=== PATIENT | female | born 1980 | race Two or more races ===

== ENCOUNTER 2019-04-05 09:46 | Emergency (ER) | payer MEDICAID, OTHER ==
[~2019-04-05] VITALS: Ht 170.2 cm; Wt 99.8 kg
[2019-04-05 10:10] VITALS: BP 111/49
== END 2019-04-05 11:38 | disposition home or self-care (01) ==
LOC: ER 09:46
DX: J20.9 Acute bronchitis, unspecified (principal); J45.909 Unspecified asthma, uncomplicated; R19.7 Diarrhea, unspecified; Z90.49 Acquired absence of other specified parts of digestive tract
CPT/HCPCS: 71046

== ENCOUNTER 2020-03-21 15:53 | Emergency (ER) | payer MEDICAID ==
[~2020-03-21] VITALS: Ht 167.6 cm; Wt 106.6 kg
[2020-03-21 16:07] VITALS: BP 127/63
[2020-03-21] MEDS ORDERED: BENZOCAINE (DENTAL) 20 % SPRAY 60ML MT ONE (17:30)
== END 2020-03-21 17:57 | disposition home or self-care (01) ==
LOC: ER 15:53
DX: K04.7 Periapical abscess without sinus (principal)

== ENCOUNTER 2020-11-22 18:34 | Emergency (ER) | payer MEDICAID ==
[~2020-11-22] VITALS: Ht 170.2 cm; Wt 107.0 kg
[2020-11-22 20:14] VITALS: BP 122/50
[2020-11-22] MEDS ORDERED: PANTOPRAZOLE 40 MG TAB PO ONE (21:15)
== END 2020-11-22 21:56 | disposition home or self-care (01) ==
LOC: ER 18:34
DX: F45.8 Other somatoform disorders (principal); J45.909 Unspecified asthma, uncomplicated; Z86.2 Personal history of diseases of the blood and blood-forming organs and certain disorders involving the immune mechanism; Z90.49 Acquired absence of other specified parts of digestive tract; Z88.8 Allergy status to other drugs, medicaments and biological substances; Z20.822 Contact with and (suspected) exposure to COVID-19
CPT/HCPCS: 36415; 70360; 70490; 87426

== ENCOUNTER 2020-12-06 21:04 | Emergency (ER) | payer MEDICAID ==
[~2020-12-06] VITALS: Ht 170.2 cm; Wt 107.0 kg
[2020-12-07 00:55] LABS: Urine Bacteria NONE SEEN /hpf (None Seen); Urine Blood Negative /uL (Negative); Urine Mucus FEW (None Seen); Urine Specific Gravity 1.027 (1.001-1.035); Urine WBC 5 /hpf (0 - 5)
[2020-12-07 01:04] LABS: Basophils # (auto) 0.1 10 ^3/uL (0-0.2); Eosinophils # (auto) 0 10 ^3/uL (0-0.8); Eosinophils % (auto) 0.3 % (0.0-7.0); Hemoglobin 8.1 g/dL (12.2-16.2); Lymphocytes # (auto) 2.4 10 ^3/uL (0.4-5.4)
[2020-12-07 01:06] LABS: Basophils % (auto) 0.6 % (0.0-2.0); Hematocrit 27.3 % (36.0-46.0); Lymphocytes % (auto) 29.2 % (10.0-50.0); Mean Corpuscular Hemoglobin 18.5 pg (28.0-32.0); Mean Corpuscular Hgb Conc. 29.8 g/dL (32.0-36.0); Mean Corpuscular Volume 62.2 fL (80.0-100.0); Monocytes # (auto) 0.6 10 ^3/uL (0-1.3); Monocytes % (auto) 7.5 % (0.0-12.0); Neutrophils # (auto) 5.2 10 ^3/uL (1.6-8.6); Neutrophils % (auto) 62.4 % (37.0-80.0); Red Blood Cells 4.39 10^6/uL (4.0-5.20); Red Cell Distribution Width 18.2 % (11.8-14.3); White Blood Cell 8.4 10^3/uL (4.4-10.8)
[2020-12-07 01:22] LABS: Albumin 4.3 g/dL (3.4-5.0); BUN/Creatinine Ratio 20.8; Calcium 8.5 mg/dL (8.5-10.1); Potassium 3.5 mmol/L (3.5-5.1)
[2020-12-07 01:25] LABS: Bilirubin, Total 0.3 mg/dL (0.2-1.0); Total Protein 8.9 g/dL (6.4-8.2)
[2020-12-07 10:29] VITALS: BP 101/52
== END 2020-12-07 11:34 | disposition still patient (30) ==
LOC: ER 21:04
DX: O99.011 Anemia complicating pregnancy, first trimester (principal); O99.511 Diseases of the respiratory system complicating pregnancy, first trimester; J45.909 Unspecified asthma, uncomplicated; Z90.49 Acquired absence of other specified parts of digestive tract; Z88.8 Allergy status to other drugs, medicaments and biological substances; Z3A.00 Weeks of gestation of pregnancy not specified
CPT/HCPCS: 36415; 76801; 76817; 80053; 81001; 81025; 84702; 85025; 87086

== ENCOUNTER 2023-01-18 09:33 | Emergency (ER) | payer MEDICAID ==
[~2023-01-18] VITALS: Ht 167.6 cm; Wt 98.5 kg
[2023-01-18 10:00] VITALS: BP 127/74; PULSE 97; RESP 16; TEMP 98.4; O2SAT 100
[2023-01-18 10:50] LABS: Basophils # (auto) 0 10 ^3/uL (0-0.2); Basophils % (auto) 0.2 % (0.0-2.0); Eosinophils # (auto) 0 10 ^3/uL (0-0.8); Mean Corpuscular Hgb Conc. 29.9 g/dL (32.0-36.0); Monocytes # (auto) 1.1 10 ^3/uL (0-1.3)
[2023-01-18 10:52] LABS: Hematocrit 29.7 % (36.0-46.0); Hemoglobin 8.9 g/dL (12.2-16.2); Lymphocytes # (auto) 1.7 10 ^3/uL (0.4-5.4); Lymphocytes % (auto) 13.9 % (10.0-50.0); Mean Corpuscular Hemoglobin 20.9 pg (28.0-32.0); Mean Corpuscular Volume 69.8 fL (80.0-100.0); Monocytes % (auto) 8.8 % (0.0-12.0); Neutrophils # (auto) 9.2 10 ^3/uL (1.6-8.6); Neutrophils % (auto) 77.1 % (37.0-80.0); Red Blood Cells 4.26 10^6/uL (4.0-5.20); Red Cell Distribution Width 17.6 % (11.8-14.3)
[2023-01-18 11:23] LABS: Alanine Aminotransferase 16 U/L (7-40); Albumin 4.1 g/dL (3.2-4.8); Alkaline Phosphatase 100 U/L (46-116); Anion Gap 9.3 (5-15); Aspartate Aminotransferase 14 U/L (13-40); Calcium 8.3 mg/dL (8.5-10.1); Carbon Dioxide 22.7 mmol/L (20-30); Chloride 108 mmol/L (98-107); Glucose 102 mg/dL (74-106); Potassium 3.2 mmol/L (3.5-5.1); Sodium 140 mmol/L (136-145)
[2023-01-18 11:24] LABS: Bilirubin, Total 0.4 mg/dL (0.2-1.0)
[2023-01-18 11:39] LABS: BUN/Creatinine Ratio 8.8 (10.0-20.0); Blood Urea Nitrogen < 5 mg/dL (9-23)
[2023-01-18] MEDS ORDERED: SODIUM CHLORIDE 0.9% 1,000 ML IV ONE (12:00)
[2023-01-18] MEDS ORDERED: HYDROcodone-ACET 5/325MG TAB PO ONE (12:00)
[2023-01-18] MEDS ORDERED: VANCOMYCIN 1GM/250ML 250 ML IV ONE (12:00)
[2023-01-18] MEDS ORDERED: HYDR-4902 PO (12:04)
[2023-01-18] MEDS ORDERED: BACDST PO (12:04)
[2023-01-18] MEDS ORDERED: CLIN300C70 PO (12:04)
[2023-01-18] MEDS ORDERED: diphenhdrAMINE HCL 50 MG/1 ML VL IV ONE (14:00)
[2023-01-18] MEDS ORDERED: FAMOTIDINE (10MG/ML) 2ML VL IV ONE (14:00)
[2023-01-18] MEDS ORDERED: DexAMETHasone SOD PHOS 10MG/1ML VIAL INJ IV ONE (14:00)
[2023-01-18] MEDS ORDERED: AUG875T PO (14:46)
== END 2023-01-18 11:58 | disposition home or self-care (01) ==
LOC: ER 09:33
DX: K04.7 Periapical abscess without sinus (principal); K02.9 Dental caries, unspecified; L03.211 Cellulitis of face; J45.909 Unspecified asthma, uncomplicated; R51.9 Headache, unspecified; Z86.2 Personal history of diseases of the blood and blood-forming organs and certain disorders involving the immune mechanism; Z90.49 Acquired absence of other specified parts of digestive tract; Z88.8 Allergy status to other drugs, medicaments and biological substances; Z79.1 Long term (current) use of non-steroidal anti-inflammatories (NSAID); Z79.899 Other long term (current) drug therapy
CPT/HCPCS: 36415; 70487; 80053; 85025; 96365; 96375; 99285; J1100; J1200; J3370; J3490; J7030; Q9967

== ENCOUNTER 2023-01-19 11:07 | Emergency (ER) | payer MEDICAID ==
[~2023-01-19] VITALS: Ht 167.6 cm; Wt 99.3 kg
[~2023-01-19 11:07] MED LIST: AUG875T PO; BACDST PO; HYDR-4902 PO
[2023-01-19] MEDS ORDERED: CLINDAMYCIN 600MG IV 50 ML IV ONE (11:45)
[2023-01-19] MEDS ORDERED: SODIUM CHLORIDE 0.9% 1,000 ML IV ONE (11:45)
[2023-01-19] MEDS ORDERED: IOHEXOL 350 MG/ML 100ML IJ ONE (11:56)
[2023-01-19] MEDS ORDERED: ONDANSETRON HCL 4 MG/2 ML VIAL IV ONE (12:00)
[2023-01-19] MEDS ORDERED: MORPHINE SULFATE 4 MG/ML SYR/VIAL IV ONE (12:00)
[2023-01-19 12:02] LABS: Basophils # (auto) 0 10 ^3/uL (0-0.2); Eosinophils # (auto) 0 10 ^3/uL (0-0.8); Eosinophils % (auto) 0.1 % (0.0-7.0); Neutrophils # (auto) 9.1 10 ^3/uL (1.6-8.6)
[2023-01-19 12:03] LABS: Alanine Aminotransferase 14 U/L (7-40); Albumin 4.2 g/dL (3.2-4.8); Alkaline Phosphatase 104 U/L (46-116); Anion Gap 9.6 (5-15); Aspartate Aminotransferase 9 U/L (13-40); BUN/Creatinine Ratio 8.8 (10.0-20.0); Blood Urea Nitrogen 5 mg/dL (9-23); Calcium 8.6 mg/dL (8.5-10.1); Carbon Dioxide 23.4 mmol/L (20-30); Chloride 108 mmol/L (98-107); Glucose 98 mg/dL (74-106); Sodium 141 mmol/L (136-145)
[2023-01-19 12:04] LABS: Bilirubin, Total 0.4 mg/dL (0.2-1.0); Total Protein 7.3 g/dL (5.7-8.2)
[2023-01-19 12:06] LABS: Basophils % (auto) 0.1 % (0.0-2.0); Hematocrit 29.7 % (36.0-46.0); Hemoglobin 9.2 g/dL (12.2-16.2); Lymphocytes % (auto) 16.3 % (10.0-50.0); Mean Corpuscular Hemoglobin 21.4 pg (28.0-32.0); Mean Corpuscular Hgb Conc. 30.8 g/dL (32.0-36.0); Mean Corpuscular Volume 69.5 fL (80.0-100.0); Monocytes # (auto) 0.9 10 ^3/uL (0-1.3); Monocytes % (auto) 7.7 % (0.0-12.0); Neutrophils % (auto) 75.8 % (37.0-80.0); Red Blood Cells 4.28 10^6/uL (4.0-5.20); Red Cell Distribution Width 17.6 % (11.8-14.3)
[2023-01-19 12:29] LABS: INR 0.98 (0.9-1.15); Partial Thromboplastin Time 26.8 SEC (24.5-34.5); Prothrombin Time 10.3 sec (9.3-11.8)
[2023-01-19 14:00] VITALS: PULSE 66; RESP 14; O2SAT 97
[2023-01-19] MEDS ORDERED: KETOROLAC TROMETH 30 MG/ML 1ML VIAL IV ONE (14:00)
[2023-01-19] MEDS ORDERED: POTASSIUM CHL 20MEQ/100ML 100 ML IV ONE (14:15)
[2023-01-19 14:32] LABS: Anisocytosis Slight; Hypochromia Slight
[2023-01-19 14:55] LABS: Urine Bacteria NONE SEEN /hpf (None Seen); Urine Blood Negative /uL (Negative); Urine Clarity Clear (Clear); Urine Color Colorless (Yellow); Urine Protein, UAD Negative (Negative); Urine Specific Gravity 1.047 (1.001-1.035); Urine Urobilinogen Normal (Negative); Urine WBC <1 /hpf (0 - 5)
[2023-01-19 15:03] LABS: Platelet Estimate Adequate
[2023-01-19 17:40] VITALS: BP 115/59; PULSE 67; RESP 15; TEMP 97.6; O2SAT 100
== END 2023-01-19 18:15 | disposition short-term general hospital (02) ==
LOC: ER 11:07
DX: D64.9 Anemia, unspecified (principal); L03.211 Cellulitis of face; K04.7 Periapical abscess without sinus
CPT/HCPCS: 36415; 70460; 70487; 70491; 80053; 81001; 83605; 85025; 85610; 85730; 87040; 96361; 96365; 96375; 99285; J1885; J2270; J2405; J3480; J3490; Q9967

== ENCOUNTER 2023-08-17 17:49 | Emergency (ER) | payer MEDICAID ==
[~2023-08-17] VITALS: Ht 167.6 cm; Wt 88.4 kg
[2023-08-17 18:49] LABS: Basophils % (auto) 0.5 % (0.0-2.0); Eosinophils % (auto) 0.6 % (0.0-7.0); Lymphocytes % (auto) 27.5 % (10.0-50.0); Monocytes % (auto) 7.2 % (0.0-12.0); Neutrophils % (auto) 64.2 % (37.0-80.0); White Blood Cell 6.9 10^3/uL (4.4-10.8)
[2023-08-17 18:50] LABS: Basophils # (auto) 0 10 ^3/uL (0-0.2); Eosinophils # (auto) 0 10 ^3/uL (0-0.8); Hematocrit 31.1 % (36.0-46.0); Hemoglobin 9.2 g/dL (12.2-16.2); Lymphocytes # (auto) 1.9 10 ^3/uL (0.4-5.4); Mean Corpuscular Hemoglobin 20.7 pg (28.0-32.0); Mean Corpuscular Hgb Conc. 29.5 g/dL (32.0-36.0); Mean Corpuscular Volume 70.1 fL (80.0-100.0); Monocytes # (auto) 0.5 10 ^3/uL (0-1.3); Neutrophils # (auto) 4.4 10 ^3/uL (1.6-8.6); Red Blood Cells 4.43 10^6/uL (4.0-5.20); Red Cell Distribution Width 17.4 % (11.8-14.3)
[2023-08-17 19:10] LABS: Alanine Aminotransferase 16 U/L (7-40); Albumin 4.2 g/dL (3.2-4.8); Alkaline Phosphatase 131 U/L (46-116); Anion Gap 4 (5-15); Aspartate Aminotransferase 18 U/L (13-40); BUN/Creatinine Ratio 15.9 (10.0-20.0); Bilirubin, Total 0.2 mg/dL (0.2-1.0); Blood Urea Nitrogen 10 mg/dL (9-23); Calcium 8.5 mg/dL (8.5-10.1); Carbon Dioxide 27 mmol/L (20-30); Chloride 108 mmol/L (98-107); Glucose 97 mg/dL (74-106); Sodium 139 mmol/L (136-145); Total Protein 6.6 g/dL (5.7-8.2)
[2023-08-17] MEDS ORDERED: IBUP-1455 PO (21:55)
[2023-08-17] MEDS ORDERED: CYCL-837 PO (21:55)
[2023-08-17 22:14] VITALS: BP 109/62; PULSE 71; RESP 16; O2SAT 100
[2023-08-17] MEDS: KETOROLAC TROMETH 30 MG/ML 1ML VIAL IM ONE (22:15)
== END 2023-08-17 22:15 | disposition home or self-care (01) ==
LOC: ER 17:49
DX: M54.12 Radiculopathy, cervical region (principal); M79.601 Pain in right arm; J45.909 Unspecified asthma, uncomplicated; D64.9 Anemia, unspecified; E07.9 Disorder of thyroid, unspecified; Z90.49 Acquired absence of other specified parts of digestive tract; Z88.8 Allergy status to other drugs, medicaments and biological substances; Z88.1 Allergy status to other antibiotic agents
CPT/HCPCS: 36415; 71045; 80053; 84484; 85025; 93005; 93971; 96372; 99285; J1885

== ENCOUNTER 2025-05-02 07:08 | Inpatient (IN) | payer MEDICAID ==
[2025-05-02] VITALS (9 sets, daily range): BP systolic 110–115; BP diastolic 65–69; PULSE 57–68; RESP 14–18; TEMP 97.8–98.1; O2SAT 96–100
[~2025-05-02] VITALS: Ht 165.1 cm; Wt 92.8 kg
[~2025-05-02 07:08] MED LIST changes: +CYCL-837 PO; +IBUP-1455 PO
--- NOTE | 2025-05-02 07:44 | ED.PDOC ---
History of Present Illness HPI Comments 45 year old female with PMHx thyroid disease, anemia, asthma, presents to the ED with a chief complaint of LT sided facial pain onset last night around 22:30. Patient states she began experiencing LT sided facial pain last night around 22:30, she is also experiencing LT sided facial numbness, described as a "tightness" sensation, pain radiates to neck. Denies facial drooping, weakness, fever, chills, head injury, LOC, chest pain, shortness of breath, changes in vision, nausea, vomiting. No other symptoms or modifying factors present at this time. Chief Complaint: Face pain Time Seen by MD: 07:40 Primary Care Provider: SENAIT Espinal Notes: Medications, Allergies Allergies: Coded Allergies: Theophyllines (Verified Allergy, Severe, 04/05/19) Vancomycin (Verified Allergy, Unknown, 08/17/23) Home Meds Active Scripts Cyclobenzaprine Hcl (Cyclobenzaprine Hcl) 5 Mg Tab, 1 TAB PO TID, #30 TAB Prov:JAZMYN [employer] 08/17/23 Ibuprofen Micronized (Ibuprofen) 800 Mg Tab, 800 MG PO TID PRN, #60 TAB Prov:JAZMYN [employer]IP [employer] 08/17/23 Amoxicillin & Pot Clavulanate (AUGMENTIN TABLET) 875 Mg Tb, 1 TAB PO BID for 10 Days, #20 TAB Prov:NINO HOYOS Q SET UP [employer]CH[employer] 01/18/23 Hydrocodone-Acetaminophen (Hydrocodone Bitartrate/AC 5-325 mg) 1 Tab Tab, 1 TAB PO Q6HR, #10 TAB as needed for pain Prov:NINO HOYOS Q SET UP MECHANIC AUTOM[employer]IC LINE 01/18/23 Sulfamethoxazole W/Trimethopri (Bactrim Ds Tablet) 1 Tab Tb, 1 TAB PO BID for 10 Days, #20 TAB Prov:NINO HOYOS Q SET UP MECHANIC AUTOMATIC LINE 01/18/23 Information Source: Patient Mode of Arrival: Ambulatory Severity: Moderate Timing: Hours Duration: Since onset Prehospital treatment: None Past Medical History PAST MEDICAL HISTORY: Anemia, Asthma, Thyroid Surgical History: Cholecystectomy, CHILD GUIDANCE COUNSELOR History: No Pertinent CHILD GUIDANCE COUNSELOR History Family History Family History: Family hx of DM, Family hx of heart rimma, Family hx of HTN, Family hx of Kidney rimma Social History Smoker: Non-Smoker Alcohol: Occasionally Drugs: Denies Drug Use Lives In: Home Constitutional: denies: chills, diaphoresis, fatigue, fever, malaise, sweats, weakness, others EENTM: reports: others (LT facial pain); denies: blurred vision, double vision, ear bleeding, ear discharge, ear drainage, ear pain, ear ringing, eye pain, eye redness, hearing loss, mouth pain, mouth swelling, nasal discharge, nose bleeding, nose congestion, nose pain, photophobia, tearing, throat pain, throat swelling, voice changes Respiratory: denies: cough, hemoptysis, orthopnea, SOB at rest, shortness of breath, SOB with excertion, stridor, wheezing, others Cardiovascular: denies: chest pain, dizzy spells, diaphoresis, Dyspnea on exertion, edema, irregular heart beat, left arm pain, lightheadedness, palpitations, PND, syncope, others Gastrointestinal: denies: abdomen distended, abdominal pain, blood streaked bowels, constipated, diarrhea, dysphagia, difficulty swallowing, hematemesis, melena, nausea, poor appetite, poor fluid intake, rectal bleeding, rectal pain, vomiting, others Genitourinary: denies: abnormal vagina bleeding, burning, dyspareunia, dysuria, flank pain, frequency, hematuria, incontinence, pain, , vagina discharge, urgency, others Neurological: reports: numbness (LT facial); denies: dizziness, fainting, headache, left sided numbness, left sided weakness, paresthesia, pre-existing deficit, right sided numbness, right sided weakness, seizure, speech problems, tingling, tremors, weakness, others Musculoskeletal: reports: neck pain (LT sided); denies: back pain, gout, joint pain, joint swelling, muscle pain, muscle stiffness, others Integumetry: denies: bruises, change in color, change in hair/nails, dryness, laceration, lesions, lumps, rash, wounds, others Allergic/Immunocompromised: denies: Difficulty Healing, Frequent Infections, Hives, Itching, others Hematologic/Lymphatic: denies: anemia, blood clots, easy bleeding, easy bruising, swollen glands, others Endocrine: denies: excessive hunger, excessive sweating, excessive thirst, excessive urination, flushing, intolerance to cold, intolerance to heat, unexplained weight gain, unexplained weight loss, others Psychiatric: denies: anxiety, bipolar disorder, depression, hopeless, panic disorder, schizophrenia, sleepless, suicidal, others All Other Systems: Reviewed and Negative Physical Exam General Appearance: No Apparent Distress, Normal HEENT: Normal ENT Inspection, Pharynx Normal, TMs Normal Neck: Full Range of Motion, Non-Tender, Normal, Normal Inspection Respiratory: Chest Non-Tender, Lungs Clear, No Accessory Muscle Use, No Respiratory Distress, Normal Breath Sounds Cardiovascular: No Edema, No JVD, No Murmur, No Gallop, Normal Peripheral Pulses, Regular Rate/Rhythm Breast Exam: Deferred Gastrointestinal: No Organomegaly, Non Tender, No Pulsatile Mass, Normal Bowel Sounds, Soft Genitalia: Deferred Pelvic: Deferred Rectal: Deferred Extremities: No calf tenderness, Normal capillary refill, Normal inspection, Normal range of motion, Non-tender, No pedal edema Musculoskeletal : Apperance: Normal Neurologic: Alert, medical laboratory technologist II-XII nml as Tested, No Motor Deficits, Normal Affect, Normal Mood, No Sensory Deficits Cerebellar Function: Normal Reflexes: Normal Skin: Dry, Normal Color, Warm Lymphatic: No Adenopathy Was a procedure done? Was a procedure done?: No Differential Dx Considerations may include: ACS, CVA, TIA, viral syndrome, electrolyte abnormality X-Ray, Labs, Meds, VS Vital Signs Date Time Temp Pulse Resp B/P (MAP) Pulse Ox O2 Delivery O2 Flow Rate FiO2 05/02/25 11:39 63 14 99 Room Air* 0 21 05/02/25 11:39 98.0 63 14 110/65 (80) 99 98.0 05/02/25 08:10 98.2 68 16 137/100 (112) 99 98.2 05/02/25 08:08 68 16 99 Room Air* 0 21 05/02/25 08:03 97.9 05/02/25 07:16 98.1 69 16 133/61 99 98.1 Lab Test 05/02/25 11:10 05/02/25 10:46 05/02/25 08:24 05/02/25 07:33 Range/Units Urine Color Light-yellow Yellow Urine Clarity Turbid H Clear Urine pH 5.5 5.0-9.0 Urine Specific [place] 1.009 1.001-1.035 Urine Protein Negative Negative Urine Ketones Negative Negative Urine Blood Negative Negative /uL Urine Nitrite Negative Negative Urine Bilirubin Negative Negative Urine Urobilinogen Normal Negative mg/dL Urine Leukocyte Esterase 1+ Negative /uL Urine RBC 2 0 - 4 /hpf Urine Microscopic WBC 4 0-5 /HPF Urine Squamous Epithelial Cells Few <5 /hpf Urine Bacteria None seen None Seen /hpf Urine Glucose Normal Normal mg/dL Urine Test Negative Negative Troponin I High Sensitivity 10 9 9 </=34 ng/L White Blood Count 4.6 4.4-10.8 10^3/uL Red Blood Count 3.52 L 4.0-5.20 10^6/uL Hemoglobin 13.2 12.2-16.2 g/dL Hematocrit 38.8 36.0-46.0 % Mean Corpuscular Volume 110.2 H 80.0-100.0 fL Mean Corpuscular Hemoglobin 37.6 H 28.0-32.0 pg Mean Corpuscular Hemoglobin Concent 34.1 32.0-36.0 g/dL Red Cell Distribution Width 13.6 11.8-14.3 % Platelet Count 210 140-450 10^3/uL Mean Platelet Volume 8.6 6.9-10.8 fL Neutrophils (%) (Auto) 58.5 37.0-80.0 % Lymphocytes (%) (Auto) 31.8 10.0-50.0 % Monocytes (%) (Auto) 7.5 0.0-12.0 % Eosinophils (%) (Auto) 1.7 0.0-7.0 % Basophils (%) (Auto) 0.5 0.0-2.0 % Neutrophils # (Auto) 2.7 1.6-8.6 10 ^3/uL Lymphocytes # (Auto) 1.5 0.4-5.4 10 ^3/uL Monocytes # (Auto) 0.3 0-1.3 10 ^3/uL Eosinophils # (Auto) 0.1 0-0.8 10 ^3/uL Basophils # (Auto) 0 0-0.2 10 ^3/uL Nucleated Red Blood Cells 0.1 % Sodium Level 140 136-145 mmol/L Potassium Level 3.8 3.5-5.1 mmol/L Chloride Level 105 98-107 mmol/L Carbon Dioxide Level 27 20-31 mmol/L Anion Gap 8 5-15 Blood Urea Nitrogen 9 9-23 mg/dL Creatinine 0.62 0.550-1.02 mg/dL Glomerular Filtration Rate Calc 113 >90 mL/min BUN/Creatinine Ratio 14.5 10.0-20.0 Serum Glucose 79 74-106 mg/dL Calcium Level 8.6 L 8.7-10.4 mg/dL B-Type Natriuretic Peptide 81.80 0-100 pg/mL Current Medications Medications (Trade) Dose Ordered Sig/Dominik Route Start Time Stop Time Status Last Admin Amoxicillin/ Clavulanate Potassium (Augmentin Tablet) 875 mg ONCE ONCE PO 05/02/25 07:45 05/02/25 07:46 DC 05/02/25 08:03 Acetaminophen (Tylenol Tablet) 650 mg ONCE ONCE PO 05/02/25 07:45 05/02/25 07:46 DC 05/02/25 08:03 Time of 1ST Reevaluation: 08:10 Reevaluation 1ST: Unchanged Patient Education/Counseling: Diagnosis, Treatment, Prognosis Family Education/Counseling: No Family Present SEPSIS Sepsis Screen Date sepsis recognized/suspect: May 02, 2025 Time Sepsis recognized/suspect: 718 Recent Procedure: No On Antibiotic Therapy: No Respiratory Rate >20: No Heart Rate >90: No Temp<36 C (96.8 F) or >38.3 C: No SBP <90 or MAP <65 mmHG: No New Acute Mental Status Change: No Is the patient on CPAP, BIPAP,: No Physician Orders Chest Portable (05/02/25 07:23) Electrocardigram (05/02/25 07:23) Head Without Contrast (05/02/25 07:23) Electrocardigram (05/02/25 08:23) Electrocardigram (05/02/25 10:23) Vital Signs Date Time Temp Pulse Resp B/P (MAP) Pulse Ox O2 Delivery O2 Flow Rate FiO2 05/02/25 11:39 63 14 99 Room Air* 0 21 05/02/25 11:39 98.0 63 14 110/65 (80) 99 98.0 05/02/25 08:10 98.2 68 16 137/100 (112) 99 98.2 05/02/25 08:08 68 16 99 Room Air* 0 21 05/02/25 08:03 97.9 05/02/25 07:16 98.1 69 16 133/61 99 98.1 Laboratory Tests Test 05/02/25 07:33 White Blood Count 4.6 10^3/uL (4.4-10.8) Medications Medications Dose Ordered Sig/Dominik Route Start Time Stop Time Status Last Admin Dose Admin Acetaminophen 650 mg ONCE ONCE PO 05/02/25 07:45 05/02/25 07:46 DC 05/02/25 08:03 Amoxicillin/ Clavulanate Potassium 875 mg ONCE ONCE PO 05/02/25 07:45 05/02/25 07:46 DC 05/02/25 08:03 Departure 1 Departure Time of Disposition: 13:06 (Patient with left-sided facial numbness and tingling concerning for possible TIA or CVA. We will admit patient for further workup and expert consultation) Impression: Primary Impression: Suspected cerebrovascular accident (CVA) Additional Impression: Numbness and tingling of left side of face Disposition: ADMITTED INPATIENT Admit to: Tele Condition: Guarded Critical Care Note Critical Care Time?: No Stability Stability form required: No Heart Score Heart Score: Heart Score Response (Comments) Value History N/A 0 EKG N/A 0 Age N/A 0 Risk Factors N/A 0 Troponin N/A 0 Total 0 I personally scribed for KAMRYN DAVIS MD ([email or web address]) on 05/02/25 at 07:44. Electronically submitted by Jo Ann Nicholson ([email or web address]). KAMRYN DAVIS MD May 02, 2025 07:44
[2025-05-02] MEDS: ACETAMINOPHEN 325 MG TAB PO ONE (08:03)
[2025-05-02 08:10] LABS: Chloride 105 mmol/L (98-107); Potassium 3.8 mmol/L (3.5-5.1); Sodium 140 mmol/L (136-145)
[2025-05-02 08:11] LABS: Anion Gap 8 (5-15); Carbon Dioxide 27 mmol/L (20-31)
[2025-05-02 08:14] LABS: Calcium 8.6 mg/dL (8.7-10.4)
[2025-05-02 08:16] LABS: Glucose 79 mg/dL (74-106)
[2025-05-02 08:17] LABS: BUN/Creatinine Ratio 14.5 (10.0-20.0)
[2025-05-02 08:18] LABS: Blood Urea Nitrogen 9 mg/dL (9-23)
[2025-05-02 08:29] LABS: Hematocrit 38.8 % (36.0-46.0); Hemoglobin 13.2 g/dL (12.2-16.2); Mean Corpuscular Hemoglobin 37.6 pg (28.0-32.0); Mean Corpuscular Volume 110.2 fL (80.0-100.0); Nucleated Red Blood Cells % 0.1 %
[2025-05-02 11:44] LABS: Urine Protein, UAD Negative (Negative)
--- NOTE | 2025-05-02 12:22 | DVH ---
CLINICAL HISTORY: dizziness TECHNIQUE: Helical scanning was performed of the head from the skull base to the vertex. Multiplanar reconstructions were performed. This exam was performed according to our departmental dose optimization program. Up-to-date CT equipment and radiation dose reduction techniques are utilized as appropriate. CTDI 50 DLP 800 COMPARISON: None FINDINGS: There is no evidence for acute intracranial hemorrhage, acute ischemic changes, mass, mass effect, or extra-axial fluid collection. There is no hydrocephalus or midline shift. There is no effacement of the cerebral sulci and basal subarachnoid cisterns. The ignacio-white matter differentiation is well maintained. The imaged paranasal sinuses are clear. IMPRESSION: NO ACUTE INTRACRANIAL ABNORMALITY SEEN.
--- NOTE | 2025-05-02 12:22 | DVH ---
INDICATION: dizziness TECHNIQUE: Frontal view of the chest. COMPARISON: XY CHEST PORTABLE on DOS: 08/17/23, XR CHEST 1 VIEW on DOS: 05/20/23 FINDINGS/IMPRESSION: The lungs are clear. The cardiomediastinal silhouette is unchanged. No pleural effusion or pneumothorax. No acute osseous abnormality.
[2025-05-02] MEDS ORDERED: NITROGLYCERIN 0.4 MG SL TAB SL PRN (14:00)
[2025-05-02] MEDS ORDERED: DOCUSATE SOD 100 MG CAP PO PRN (14:00)
--- NOTE | 2025-05-02 14:02 | DVHHPRES ---
History of Present Illness Resident Creating Document: BRADY NEWMAN RESIDENT History of Present Illness Mahogany Dos Santos, a 45-year-old female with a history of obesity, hypothyroidism, iron-deficiency anemia, hypovitaminosis D, asthma, Cholecystectomy, and presents with sudden onset left-sided facial pain, tingling and numbness described as tightness radiating to the neck since last night at 22:30, without associated weakness, facial droop, fever, vision changes, chest pain, or other systemic symptoms. Denies any injury or any similar previous episodes. PMHx: obesity, hypothyroidism, iron-deficiency anemia, hypovitaminosis D and asthma PSHx: Cholecystectomy, Family history: DM, heart rimma, HTN, Kidney rimma Social history: Patient is a non-smoker, drinks alcohol occasionally, denies drug use, and lives at home. OBGYN: active menstruation, sexually active Review of Systems Constitutional: Yes: Weakness, Malaise; No: Fever, Chills, Sweats, Other Eyes: No: Pain, Vision change, Conjunctivae inflammation, Eyelid inflammation, Other, Redness ENT: No: Ear pain, Ear discharge, Nose pain, Nose discharge, Nose congestion, Mouth pain, Mouth swelling, Throat pain, Throat swelling, Other Respiratory: No: Cough, Dry, Shortness of breath, SOB with excertion, Wheezing, Hemoptysis, Pleuritic Pain, Sputum, Wheezing, Other Cardiovascular: No: Chest Pain, Palpitations, Orthopnea, Paroxysmal Noc. Dyspnea, Edema, Lt Headedness, Other Gastrointestinal: No: Nausea, Vomiting, Abdominal Pain, Diarrhea, Constipation, Melena, Hematochezia, Other Genitourinary: No Dysuria; Frequency; No Incontinence, No Hematuria, No Retention, No Other Musculoskeletal: neck pain; No: other, shoulder pain, arm pain, back pain, hand pain, leg pain, foot pain Skin: No: Rash, Lesions, Jaundice, Bruising, Other Neurological: Weakness, Numbness, Other (unilateral face left); No: Incoordination, Change in speech, Confusion, Seizures Allergies: Coded Allergies: Theophyllines (Verified Allergy, Severe, 04/05/19) Vancomycin (Verified Allergy, Unknown, 08/17/23) Medications Current Medications Medications Dose Ordered Sig/Dominik Route Start Time Stop Time Status Last Admin Dose Admin Sodium Chloride 1,000 ml @ 120 mls/hr Q8H20M IV 05/02/25 14:00 UNV Acetaminophen/ Hydrocodone Bitart 1 tab Q4HP PRN PO 05/02/25 14:00 UNV Nitroglycerin 0.4 mg Q5MINP PRN SL 05/02/25 14:00 UNV Morphine Sulfate 2 mg Q30M PRN IV 05/02/25 14:00 UNV Exam Vital Signs Vital Signs Date Time Temp Pulse Resp B/P (MAP) Pulse Ox O2 Delivery O2 Flow Rate FiO2 05/02/25 13:26 57 13 101/65 (77) 100 05/02/25 11:39 Room Air* 0 21 05/02/25 11:39 98.0 98.0 General Appearance: Alert, Oriented X3, Cooperative, mild distress HEENT: Atraumatic, PERRLA, EOMI, Other (tenderness, to left baptism, sternocleidomastoid and around ear) Respiratory: Clear to auscultation, Normal air movement Cardiovascular: Regular rate, Normal S1, Normal S2, No murmurs, Gallops Abdominal: Normal bowel sounds, Soft, No tenderness, No hepatospenomegaly, No masses Extremities: No clubbing, No cyanosis, No edema, Normal pulses, No tenderness/swelling Skin: No rashes, No breakdown, No significant lesion Neuro: Normal gait, Normal speech, Strength at 5/5 X4 ext, Normal tone, Sensation intact, Reflexes 2+, Other (local tenderness +ve but no limitating movement or neck stiffness. ) Psych/Mental Status: Mental status NL, Mood NL Labs/Xrays Labs Test 05/02/25 11:10 05/02/25 10:46 05/02/25 07:33 Range/Units Urine Color Light-yellow Yellow Urine Clarity Turbid H Clear Urine pH 5.5 5.0-9.0 Urine Specific [place] 1.009 1.001-1.035 Urine Protein Negative Negative Urine Ketones Negative Negative Urine Blood Negative Negative /uL Urine Nitrite Negative Negative Urine Bilirubin Negative Negative Urine Urobilinogen Normal Negative mg/dL Urine Leukocyte Esterase 1+ Negative /uL Urine RBC 2 0 - 4 /hpf Urine Microscopic WBC 4 0-5 /HPF Urine Squamous Epithelial Cells Few <5 /hpf Urine Bacteria None seen None Seen /hpf Urine Glucose Normal Normal mg/dL Urine Test Negative Negative Troponin I High Sensitivity 10 </=34 ng/L White Blood Count 4.6 4.4-10.8 10^3/uL Red Blood Count 3.52 L 4.0-5.20 10^6/uL Hemoglobin 13.2 12.2-16.2 g/dL Hematocrit 38.8 36.0-46.0 % Mean Corpuscular Volume 110.2 H 80.0-100.0 fL Mean Corpuscular Hemoglobin 37.6 H 28.0-32.0 pg Mean Corpuscular Hemoglobin Concent 34.1 32.0-36.0 g/dL Red Cell Distribution Width 13.6 11.8-14.3 % Platelet Count 210 140-450 10^3/uL Mean Platelet Volume 8.6 6.9-10.8 fL Neutrophils (%) (Auto) 58.5 37.0-80.0 % Lymphocytes (%) (Auto) 31.8 10.0-50.0 % Monocytes (%) (Auto) 7.5 0.0-12.0 % Eosinophils (%) (Auto) 1.7 0.0-7.0 % Basophils (%) (Auto) 0.5 0.0-2.0 % Neutrophils # (Auto) 2.7 1.6-8.6 10 ^3/uL Lymphocytes # (Auto) 1.5 0.4-5.4 10 ^3/uL Monocytes # (Auto) 0.3 0-1.3 10 ^3/uL Eosinophils # (Auto) 0.1 0-0.8 10 ^3/uL Basophils # (Auto) 0 0-0.2 10 ^3/uL Nucleated Red Blood Cells 0.1 % Sodium Level 140 136-145 mmol/L Potassium Level 3.8 3.5-5.1 mmol/L Chloride Level 105 98-107 mmol/L Carbon Dioxide Level 27 20-31 mmol/L Anion Gap 8 5-15 Blood Urea Nitrogen 9 9-23 mg/dL Creatinine 0.62 0.550-1.02 mg/dL Glomerular Filtration Rate Calc 113 >90 mL/min BUN/Creatinine Ratio 14.5 10.0-20.0 Serum Glucose 79 74-106 mg/dL Calcium Level 8.6 L 8.7-10.4 mg/dL B-Type Natriuretic Peptide 81.80 0-100 pg/mL SEPSIS Sepsis Screen Date sepsis recognized/suspect: May 02, 2025 Time Sepsis recognized/suspect: 1143 Recent Procedure: No On Antibiotic Therapy: No Respiratory Rate >20: No Heart Rate >90: No Temp<36 C (96.8 F) or >38.3 C: No SBP <90 or MAP <65 mmHG: No New Acute Mental Status Change: No Is the patient on CPAP, BIPAP,: No Physician Orders Chest Portable (05/02/25 07:23) Electrocardigram (05/02/25 07:23) Head Without Contrast (05/02/25 07:23) Electrocardigram (05/02/25 08:23) Electrocardigram (05/02/25 10:23) Admit (05/02/25 13:57) Allergies (05/02/25 13:57) Code Status (05/02/25 13:57) Sodium Chloride 0.9% (05/02/25 14:00) Hydrocodone-Acet 5/325mg Tab (Conger 5/32 (05/02/25 14:00) Ondansetron Hcl (Zofran) (05/02/25 14:00) Docusate Sodium Capsule (Colace Capsule) (05/02/25 14:00) Complete Blood Count (05/03/25 04:00) Comprehensive Metabolic Panel (05/03/25 04:00) Npo (Nothing By Mouth) Diet (05/02/25 Dinner) Pt Request For Service (05/02/25 13:57) Echo 2d Mode Cardiac Dop (05/02/25 13:57) Carotid Duplx W Color Dop (05/02/25 13:57) Condition: Serious (05/02/25 13:57) Acetaminophen Tablet (Tylenol Tablet) (05/02/25 14:00) Bedrest With Bathroom Privileg (05/02/25 13:57) Morphine Sulfate Injection (05/02/25 14:00) Sequential Compression Device (05/02/25 ) Nitroglycerin Sublingual (Ntrostat Subli (05/02/25 14:00) Morphine Sulfate Injection (05/02/25 14:00) Oxygen By Nasal Cannula (05/02/25 13:57) Stat Ekg For Chest Pain (05/02/25 13:57) Notify Md Of Changes From Base (05/02/25 13:57) Cosmetics And Toiletries Salesperson For 24 Hours (05/02/25 13:57) Emergency Dysrhythmia Protocol (05/02/25 13:57) Rhythm Strips Once Every Shift (05/02/25 13:57) Vital Signs Date Time Temp Pulse Resp B/P (MAP) Pulse Ox O2 Delivery O2 Flow Rate FiO2 05/02/25 13:26 57 13 101/65 (77) 100 05/02/25 12:01 55 10 107/71 (83) 100 05/02/25 11:39 63 14 99 Room Air* 0 21 05/02/25 11:39 98.0 63 14 110/65 (80) 99 98.0 05/02/25 08:10 98.2 68 16 137/100 (112) 99 98.2 05/02/25 08:08 68 16 99 Room Air* 0 21 05/02/25 08:03 97.9 05/02/25 07:16 98.1 69 16 133/61 99 98.1 Laboratory Tests Test 05/02/25 07:33 White Blood Count 4.6 10^3/uL (4.4-10.8) Medications Medications Dose Ordered Sig/Dominik Route Start Time Stop Time Status Last Admin Dose Admin Acetaminophen 650 mg ONCE ONCE PO 05/02/25 07:45 05/02/25 07:46 DC 05/02/25 08:03 650 MG Amoxicillin/ Clavulanate Potassium 875 mg ONCE ONCE PO 05/02/25 07:45 05/02/25 07:46 DC 05/02/25 08:03 875 MG Assessment/Plan Assessment/Plan #Likely TIA and/or stroke: Focal facial neurological deficits: NC CT negative for intracranial hemorrhage, interval follow up, trace rhythm, echo rule out PFO, aspirin, atorvastatin, Neurology consult and physical therapy. check for HbA1c, UDS, lipid panel. Possiblity of GCA high, ESR , CRP and presumptive steroids started. needs close follow up, otitis externa. #Acute Left facial pain: Differential include Houston's palsy, facial cellulitis, facial nerve compression, trigeminal neuralgia and shingles, close monitoring needed in-hospital. #Acute complicated UTI: nonspecific urinary symptoms, frequency chcf, Urinalysis suggestive, urine culture, IV ceftriaxone to continue. Prior cultures negative for drug resistant organisms. rule out #Obesity grade 1: 34.3 BMI, weight loss counseling and healthy lifestyle modification to continue, patient is on Wegovy. #Hypothyroidism: Levothyroxine 175 mcg, check for free T4 and TSH we will hold the high dose until appropriate need is evaluated. #Asthma: Lifetime nonsmoker, albuterol as needed, previous exacerbation was on December 2024, breathing comfortably in the room air as needed albuterol. #Hypovitaminosis D: Daily 2000 units to continue #known iron-deficiency anemia, on ferrosol: previously patient had microcytosis, Continue iron supplements. #macrocytic anemia/ macrocytosis: presented with MCV of 110 , ruled out B12 folate deficiency and hypothyroidism PUD prophylaxis: Protonix IV to continue DVT prophylaxis: SCD/brisk movement. Barriers to discharge: Medical diagnosis and management in progress. Patient lives with family. Independent for ADL. PT consulted. PCP: Dr. Blair Specialist Relevant To Admission: Neurology, consulted for possible stroke /TIA. Case discussed with Dr. Mccurdy. Code Status: Full Code. Discussion for goals of care and care plan needed total 29 minutes bedside. Plan discussed with: Patient My Orders Orders - BRADY NEWMAN RESIDENT Procedure Category Date Status Time Admit ADMIT 05/02/25 Transmitted 13:57 Allergies JACOB 05/02/25 In Process 13:57 Code Status CODE 05/02/25 Transmitted 13:57 Sodium Chloride 0.9% PHA 05/02/25 Logged 14:00 Hydrocodone-Acet PHA 05/02/25 Logged 5/325mg Tab (Conger 14:00 Ondansetron Hcl PHA 05/02/25 Transmitted (Zofran) 14:00 Docusate Sodium PHA 05/02/25 Transmitted Capsule (Colace 14:00 Complete Blood Count LAB 05/03/25 Verified 04:00 Comprehensive LAB 05/03/25 Verified Metabolic Panel 04:00 Npo (Nothing By DIET 05/02/25 Transmitted Mouth) Diet Dinner Pt Request For Service PT 05/02/25 Logged 13:57 Echo 2d Mode Cardiac US 05/02/25 Logged DOP 13:57 Carotid Duplx W Color US 05/02/25 Logged DOP 13:57 Condition: Serious JACOB 05/02/25 In Process 13:57 Acetaminophen Tablet PHA 05/02/25 Transmitted (Tylenol Tablet) 14:00 Bedrest With Bathroom JACOB 05/02/25 In Process Privileg 13:57 Morphine Sulfate [facility] 05/02/25 Transmitted Injection 14:00 Sequential [facility] 05/02/25 In Process Compression Device Nitroglycerin [facility] 05/02/25 Logged Sublingual (Ntrostat 14:00 Morphine Sulfate [facility] 05/02/25 Logged Injection 14:00 Oxygen By Nasal RT 05/02/25 Transmitted Cannula 13:57 Stat Ekg For Chest [facility] 05/02/25 In Process Pain 13:57 Notify Md Of Changes [facility] 05/02/25 In Process From Base 13:57 Cosmetics And Toiletries Salesperson For [facility] 05/02/25 In Process 24 Hours 13:57 Emergency Dysrhythmia [facility] 05/02/25 In Process Protocol 13:57 Rhythm Strips Once [facility] 05/02/25 In Process Every Shift 13:57 Date of Service: May 02, 2025 Billing Provider: TWAN MCCURDY MD Common Visit Codes: 84219-GCMDBLM INP/OBS CARE (HIGH) Secondary Visit Codes: [id number] CARE PLAN 30 MINUTES BRADY NEWMAN RESIDENT May 02, 2025 14:02
[2025-05-02] MEDS ORDERED: MORPHINE SULFATE 4 MG/ML SYR/VIAL IV PRN (14:15)
[2025-05-02] MEDS: MORPHINE SULFATE 4 MG/ML SYR/VIAL IV ONE (14:32)
[2025-05-02] MEDS: ONDANSETRON HCL 4 MG/2 ML VIAL IV ONE (14:32)
--- NOTE | 2025-05-02 14:45 | DVH ---
Carotid Duplex CLINICAL HISTORY: rule out carotid stenosis COMPARISON: None TECHNIQUE: Duplex Doppler evaluation of the extracranial carotid and vertebral arteries including color Doppler and spectral/pulsed waveform analysis was performed. FINDINGS: RIGHT SIDE: The peak systolic velocities are 90 cm/s in the CCA, 81 cm/s in the ICA. The ICA/CCA ratio is 0.9. The external carotid artery is patent with peak systolic velocity of 91 cm/s proximally. The subclavian artery is patent with peak systolic velocity of na cm/s. There is appropriate antegrade flow in the right vertebral artery. LEFT SIDE: The peak systolic velocities are 104 cm/s in the CCA, 118 cm/s in the ICA. The ICA/CCA ratio is 1.1. The external carotid artery is patent with peak systolic velocity of 106 cm/s proximally. The subclavian artery is patent with peak systolic velocity of na cm/s. There is appropriate antegrade flow in the left vertebral artery. IMPRESSION: No hemodynamically significant stenosis noted in the right carotid system. No hemodynamically significant stenosis noted in the left carotid system. Reference: Radiology 2003; 229:340-346 Normal ICA PSV is <125 cm/sec and no plaque or intimal thickening is visible sonographically additional criteria include ICA/CCA PSV ratio <2.0 and ICA EDV <40 cm/sec <50% ICA stenosis ICA PSV is <125 cm/sec and plaque or intimal thickening is visible sonographically additional criteria include ICA/CCA PSV ratio <2.0 and ICA EDV <40 cm/sec 50-69% ICA stenosis ICA PSV is 125-230 cm/sec and plaque is visible sonographically additional criteria include ICA/CCA PSV ratio of 2.0-4.0 and ICA EDV of 40-100 cm/sec 70% ICA stenosis but less than near occlusion ICA PSV is >230 cm/sec and visible plaque and luminal narrowing are seen at ignacio-scale and color Doppler ultrasound (the higher the Doppler parameters lie above the threshold of 230 cm/sec, the greater the likelihood of severe disease) additional criteria include ICA/CCA PSV ratio >4 and ICA EDV >100 cm/sec
[2025-05-02] MEDS: SODIUM CHLORIDE 0.9% 1,000 ML IV SCH (15:06)
[2025-05-02 15:09] LABS: Triglycerides 136 mg/dL (< 150)
[2025-05-02 15:11] LABS: Cholesterol 165 mg/dL (< 200)
[2025-05-02 15:12] LABS: HDL Cholesterol 70 mg/dL (40-59)
[2025-05-02 15:15] LABS: Free T4 (Free Thyroxine) 1.03 ng/dL (0.89-1.76)
[2025-05-02] MEDS: ATORVASTATIN 20 MG TAB PO SCH (15:29)
[2025-05-02] MEDS: PANTOPRAZOLE 40 MG/10 ML VIAL INJ IV SCH (15:42)
[2025-05-02 15:53] LABS: Thyroid Stimulating Hormone 4.06 uIU/mL (0.55-4.78)
[2025-05-02 15:55] LABS: Beta HCG, Quantitative 0.8 mIU/mL (1.5-4.2)
[2025-05-02 16:12] LABS: Alanine Aminotransferase 29.0 U/L (7-40); Albumin 4.1 g/dL (3.2-4.8); Alkaline Phosphatase 86.0 U/L (46-116); Bilirubin, Direct 0.1 mg/dL (<0.3); Bilirubin, Total 0.4 mg/dL (0.2-1.0); Total Protein 6.9 g/dL (5.7-8.2)
[2025-05-02] MEDS: CYANOCOBALAMIN (B-12) 1000 MCG/1 ML VIAL IM ONE (17:31)
[2025-05-02] MEDS: predniSONE 20 MG TAB PO ONE (20:22)
[2025-05-02] MEDS: MORPHINE SULFATE 4 MG/ML SYR/VIAL IV PRN (20:23)
--- NOTE | 2025-05-02 22:00 | DVHINCON2 ---
Date of service: May 02, [address] Parikh Reason for Consultation Stroke versus TIA in young patient History of Present Illness Ms. Dos Santos is a 45 years old right-handed female with a history of hypothyroidism, anemia, asthma, obesity, she came to the [facility] [place] on 05/02/2025 with a chief complaint of left facial pain, at this time, he is alert and fully oriented, he provided the following history She developed intense intermittent throbbing pain, 10/10 in the left frontal head region, face and chin, the pain lasts for 20 minutes. This no associated facial weakness, hearing change, taste change, skin rash She did not recent acute illness, suddenly flu, chills, fever In the hospital, she was found to have microcytic anemia, vitamin B12 deficiency WBC/HB/PLT/MCV, 05/02/2025: 4.6/30.2/210/110.2 ESR, 05/02/2025: 8 BMP, 05/02/2025: Unremarkable Liver function tests, 05/02/2025: Normal HGB A1c, 04/22/2025: 4.7 TG/HDL/LDL/HDL, 05/02/2025: 136/165/87/70 Vitamin B12, 05/02/25: 169 Folic acid, 05/02/2025: 9.11 TSH, 05/02/2025: 4.06 FT4, 04/22/2025: 1.03 Carotid Doppler, 05/02/2025:No hemodynamically significant stenosis noted in the right carotid system. No hemodynamically significant stenosis noted in the left carotid system CT head, 05/02/2025: NO ACUTE INTRACRANIAL ABNORMALITY SEEN Past Medical History Hypothyroidism, anemia, asthma Past Surgical History Cholecystectomy, Family History: Patient reports no known family medical history. Family History Hypertension, diabetes, heart disease, kidney failure Social History She denies a history of tobacco smoking, drug or alcohol abuse Allergies: Coded Allergies: Theophyllines (Verified Allergy, Severe, 04/05/19) Vancomycin (Verified Allergy, Unknown, 08/17/23) Home Meds Active Scripts Cyclobenzaprine Hcl (Cyclobenzaprine Hcl) 5 Mg Tab, 1 TAB PO TID, #30 TAB Prov:PAULINA*JAZMYNP 08/17/23 Ibuprofen Micronized (Ibuprofen) 800 Mg Tab, 800 MG PO TID PRN, #60 TAB Prov:JAZMYN PHILIP RESIDENT CARE AIDE 08/17/23 Amoxicillin & Pot Clavulanate (AUGMENTIN TABLET) 875 Mg Tb, 1 TAB PO BID for 10 Days, #20 TAB Prov:NINO HOYOS Q HIGH PRESSURE CLEANER 01/18/23 Hydrocodone-Acetaminophen (Hydrocodone Bitartrate/AC 5-325 mg) 1 Tab Tab, 1 TAB PO Q6HR, #10 TAB as needed for pain Prov:LILLIANA HOYOSA Q HIGH PRESSURE CLEANER 01/18/23 Sulfamethoxazole W/Trimethopri (Bactrim Ds Tablet) 1 Tab Tb, 1 TAB PO BID for 10 Days, #20 TAB Prov:LILLIANA HOYOSA Q HIGH PRESSURE CLEANER 01/18/23 Current Medications Current Medications Medications (Trade) Dose Ordered Sig/Dominik Route PRN Reason Start Time Stop Time Status Last Admin Sodium Chloride 1,000 ml @ 120 mls/hr Q8H20M IV 05/02/25 14:00 05/02/25 15:29 Acetaminophen/ Hydrocodone Bitart (Prim 5/325MG Tab) 1 tab Q4HP PRN PO MODERATE PAIN (4-6 PAIN SCALE) 05/02/25 14:00 Ondansetron HCl (Zofran) 4 mg Q4HP PRN IV NAUSEA / VOMITING 05/02/25 14:00 Docusate Sodium (Colace Capsule) 100 mg BIDPRN PRN PO FOR CONSTIPATION 05/02/25 14:00 Acetaminophen (Tylenol Tablet) 650 mg Q6HP PRN PO PAIN SCALE 1-3 OR TEMP>100.4 05/02/25 14:00 Morphine Sulfate 2 mg Q4HPRN PRN IV SEVERE PAIN (7-10 PAIN SCALE) 05/02/25 14:15 05/02/25 20:23 Nitroglycerin (Ntrostat Sublingual) 0.4 mg Q5MINP PRN SL FOR CHEST PAIN 05/02/25 14:00 Morphine Sulfate 2 mg Q30M PRN IV FOR CHEST PAIN 05/02/25 14:15 Aspirin 81 mg DAILY PO 05/02/25 14:30 05/02/25 15:29 Atorvastatin Calcium (Lipitor) 40 mg DAILY PO 05/02/25 14:30 05/02/25 15:29 Ceftriaxone Sodium 50 ml @ 100 mls/hr DAILY IV 05/02/25 14:30 05/02/25 15:30 Cholecalciferol (Vitamin D3 Tablet) 2,000 unit DAILY PO 05/03/25 10:00 Ferrous Sulfate 325 mg DAILY PO 05/03/25 10:00 Albuterol (Ventolin Medneb) 1.25 mg Q6HPRN PRN NEB SHORTNESS OF BREATH 05/02/25 14:30 Pantoprazole Sodium (Protonix) 40 mg DAILY IV 05/02/25 14:30 05/02/25 15:42 Prednisone 60 mg DAILY PO 05/03/25 10:00 Review of Systems As above, the other systems are negative Vital Signs Vital Signs Date Time Temp Pulse Resp B/P (MAP) Pulse Ox O2 Delivery O2 Flow Rate FiO2 05/02/25 21:00 97.8 57 18 110/69 (83) 96 97.8 05/02/25 20:00 Room Air* 0 21 Physical Exam GENERAL EXAM: General: the patient is well developed and nourished. No acute distress. HEENT: Normocephalic, neck is supple, no carotid bruits. No mass. No erythema/swelling/rashes in the face and scalp RESPIRATORY: Normal respiratory effort with symmetrical lung expansion. Lungs clear to auscultation. CARDIOVASCULAR: Regular rate and rhythm with no murmurs. S1, S2. ABDOMEN: Soft, nontender, normal bowel sound NEUROLOGICAL: MENTAL STATUS: Awake and alert. Oriented to person, place, time and general circumstances. Able to give personal history. SPEECH, LANGUAGE, HIGHER CORTICAL FUNCTION: no aphasia or dysathria. CRANIAL NERVES: #2: Intact visual myers to confrontation. The optic discs were sharp. #3,4,6: Pupils are equal, round and reactive. EOMs full and conjugate. No nystagmus. #5: Diminished pinprick and light touch only in the left face. Mandibular strength intact. #7: Facial muscles symmetrical and strength intact. #8: Hearing grossly normal to voice. #9,10: Uvula and soft palate rise in the midline. Swallow and voice are normal. #11: Trapezius and sternomastoid strength intact bilaterally. #12: Tongue midline. No fasciculations or atrophy. SENSATION: Light touch perceived the painful stimuli in the left neck Sensation to touch and pinprick is normal in the extremities. MOTOR: Normal tone in the upper and lower extremity. Normal muscle bulk. No fasciculations. No abnormal movements or posturing. Muscle strength of the major groups in the extremities is 4/5, slightly weaker in the left arm than leg, but without drift. REFLEXES: Deep tendon reflexes are symmetrical. No pathological reflexes. CEREBELLAR/COORDINATION: Finger to nose is normal bilaterally. GAIT/STATION: deferred. Labs/Diagnostic Data Labs Test 05/02/25 11:10 05/02/25 10:46 05/02/25 08:24 05/02/25 07:33 Range/Units Urine Color Light-yellow Yellow Urine Clarity Turbid H Clear Urine pH 5.5 5.0-9.0 Urine Specific [place] 1.009 1.001-1.035 Urine Protein Negative Negative Urine Ketones Negative Negative Urine Blood Negative Negative /uL Urine Nitrite Negative Negative Urine Bilirubin Negative Negative Urine Urobilinogen Normal Negative mg/dL Urine Leukocyte Esterase 1+ Negative /uL Urine RBC 2 0 - 4 /hpf Urine Microscopic WBC 4 0-5 /HPF Urine Squamous Epithelial Cells Few <5 /hpf Urine Bacteria None seen None Seen /hpf Urine Glucose Normal Normal mg/dL Urine Test Negative Negative Troponin I High Sensitivity 10 </=34 ng/L Vitamin B12 Level 169 L 211-911 pg/mL Folic Acid 9.11 >5.38 ng/mL Free Thyroxine (T4) Calculated 1.03 0.89-1.76 ng/dL Total Bilirubin 0.4 0.2-1.0 mg/dL Direct Bilirubin 0.1 <0.3 mg/dL Aspartate Amino Transferase (AST) 29 13-40 U/L Alanine Aminotransferase (ALT) 29 7-40 U/L Alkaline Phosphatase 86 46-116 U/L C-Reactive Protein High Sensitivity 0.03 <1.0 mg/dL Total Protein 6.9 5.7-8.2 g/dL Albumin 4.1 3.2-4.8 g/dL Triglycerides Level 136 < 150 mg/dL Cholesterol Level 165 < 200 mg/dL LDL Cholesterol 87 < 100 mg/dL HDL Cholesterol 70 H 40-59 mg/dL Thyroid Stimulating Hormone (TSH) 4.06 0.55-4.78 uIU/mL Beta HCG, Quantitative 0.8 L 1.5-4.2 mIU/mL Plasma/Serum Blood Alcohol < 3.0 <10 mg/dL White Blood Count 4.6 4.4-10.8 10^3/uL Red Blood Count 3.52 L 4.0-5.20 10^6/uL Hemoglobin 13.2 12.2-16.2 g/dL Hematocrit 38.8 36.0-46.0 % Mean Corpuscular Volume 110.2 H 80.0-100.0 fL Mean Corpuscular Hemoglobin 37.6 H 28.0-32.0 pg Mean Corpuscular Hemoglobin Concent 34.1 32.0-36.0 g/dL Red Cell Distribution Width 13.6 11.8-14.3 % Platelet Count 210 140-450 10^3/uL Mean Platelet Volume 8.6 6.9-10.8 fL Neutrophils (%) (Auto) 58.5 37.0-80.0 % Lymphocytes (%) (Auto) 31.8 10.0-50.0 % Monocytes (%) (Auto) 7.5 0.0-12.0 % Eosinophils (%) (Auto) 1.7 0.0-7.0 % Basophils (%) (Auto) 0.5 0.0-2.0 % Neutrophils # (Auto) 2.7 1.6-8.6 10 ^3/uL Lymphocytes # (Auto) 1.5 0.4-5.4 10 ^3/uL Monocytes # (Auto) 0.3 0-1.3 10 ^3/uL Eosinophils # (Auto) 0.1 0-0.8 10 ^3/uL Basophils # (Auto) 0 0-0.2 10 ^3/uL Nucleated Red Blood Cells 0.1 % Erythrocyte Sedimentation Rate 8 0-20 mm/hr Sodium Level 140 136-145 mmol/L Potassium Level 3.8 3.5-5.1 mmol/L Chloride Level 105 98-107 mmol/L Carbon Dioxide Level 27 20-31 mmol/L Anion Gap 8 5-15 Blood Urea Nitrogen 9 9-23 mg/dL Creatinine 0.62 0.550-1.02 mg/dL Glomerular Filtration Rate Calc 113 >90 mL/min BUN/Creatinine Ratio 14.5 10.0-20.0 Serum Glucose 79 74-106 mg/dL Hemoglobin A1c 4.7 <5.7 % A1C Calcium Level 8.6 L 8.7-10.4 mg/dL B-Type Natriuretic Peptide 81.80 0-100 pg/mL Assessment Acute left facial pain, etiology unclear ? Neuralgia ? Shingles ? 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 Although this document has been carefully reviewed, there may still be some phonetic and typographical errors. These areas are purely typographical due to imperfections of the software programs, and do not reflect any compromise in the patient's medical care. Plan discussed with: Patient, Other CODEY RAMOS MD May 02, 2025 22:00
[2025-05-03] VITALS (11 sets, daily range): BP systolic 98–136; BP diastolic 62–77; PULSE 57–89; RESP 17–20; TEMP 97.8–98.7; O2SAT 95–100
[2025-05-03] MEDS: HYDROcodone-ACET 5/325MG TAB PO PRN (03:29)
[2025-05-03 06:56] LABS: Hematocrit 37.1 % (36.0-46.0); Hemoglobin 12.6 g/dL (12.2-16.2); Mean Corpuscular Hemoglobin 37.7 pg (28.0-32.0); Mean Corpuscular Volume 110.5 fL (80.0-100.0); Nucleated Red Blood Cells % 0.1 %
[2025-05-03 07:10] LABS: Alanine Aminotransferase 35 U/L (7-40); Albumin 3.6 g/dL (3.2-4.8); Alkaline Phosphatase 79 U/L (46-116); Anion Gap 10 (5-15); BUN/Creatinine Ratio 12.7 (10.0-20.0); Carbon Dioxide 22 mmol/L (20-31); Potassium 4.2 mmol/L (3.5-5.1); Sodium 140 mmol/L (136-145); Total Protein 6.3 g/dL (5.7-8.2)
[2025-05-03 07:11] LABS: Bilirubin, Total 0.4 mg/dL (0.2-1.0)
[2025-05-03 07:16] LABS: Blood Urea Nitrogen 7 mg/dL (9-23); Calcium 8.3 mg/dL (8.7-10.4); Chloride 108 mmol/L (98-107); Glucose 117 mg/dL (74-106)
[2025-05-03] MEDS ORDERED: IOHEXOL 350 MG/ML 100ML IJ ONE (09:10)
[2025-05-03] MEDS: ACETAMINOPHEN 325 MG TAB PO PRN (09:24)
--- NOTE | 2025-05-03 09:28 | DVHPN2 ---
Progress Note - Dictate Date Seen: May 03, 2025 Medical Necessity Reason Pt with a Central, PICC or Fol: No Subjective MsTahmina Dos Santos is a 45 years old right-handed female with a history of hypothyroidism, anemia, asthma, obesity, she came to the [facility] on 05/02/2025 with a chief complaint of left facial pain I have seen and examined the patient, discussed with her nurse and primary care team, at this time, she is doing fine, alert and fully oriented Earlier this morning, the patient has had left facial numbness, left eye pain, worsened left monocular blurry vision, followed by weakness numbness in the left arm than leg, the left-hand clawed up and the right 3rd 4th finger were penitentiary flexed. [place] neurology saw her WBC/HB/PLT/MCV, 05/02/2025: 4.6/30.2/210/110.2 ESR, 05/02/2025: 8 BMP, 05/02/2025: Unremarkable Liver function tests, 05/02/2025: Normal HGB A1c, 04/22/2025: 4.7 TG/HDL/LDL/HDL, 05/02/2025: 136/165/87/70 Vitamin B12, 05/02/25: 169 Folic acid, 05/02/2025: 9.11 TSH, 05/02/2025: 4.06 FT4, 04/22/2025: 1.03 Carotid Doppler, 05/02/2025:No hemodynamically significant stenosis noted in the right carotid system. No hemodynamically significant stenosis noted in the left carotid system CT head, 05/02/2025 1120: NO ACUTE INTRACRANIAL ABNORMALITY SEEN MR head, 04/03/25: No acute intracranial abnormality seen. No evidence for acute infarct. No significant white matter disease. vital signs Vital Sign Date Time Temp Pulse Resp B/P (MAP) Pulse Ox O2 Delivery O2 Flow Rate FiO2 05/03/25 09:24 97.8 05/03/25 05:00 57 18 100/62 (75) 97 05/02/25 20:00 Room Air* 0 21 Total Intake and Output 05/02/25 05/02/25 05/03/25 15:00 23:00 07:00 Intake Total 50 ml 600 ml Balance 50 ml 600 ml medications Current Medications Medications Dose Ordered Sig/Dominik Route Start Time Stop Time Status Last Admin Dose Admin Sodium Chloride 1,000 ml @ 120 mls/hr Q8H20M IV 05/02/25 14:00 05/03/25 06:33 120 MLS/HR Acetaminophen/ Hydrocodone Bitart 1 tab Q4HP PRN PO 05/02/25 14:00 05/03/25 03:29 1 TAB Ondansetron HCl 4 mg Q4HP PRN IV 05/02/25 14:00 Docusate Sodium 100 mg BIDPRN PRN PO 05/02/25 14:00 Acetaminophen 650 mg Q6HP PRN PO 05/02/25 14:00 05/03/25 09:24 650 MG Morphine Sulfate 2 mg Q4HPRN PRN IV 05/02/25 14:15 05/02/25 20:23 2 MG Nitroglycerin 0.4 mg Q5MINP PRN SL 05/02/25 14:00 Morphine Sulfate 2 mg Q30M PRN IV 05/02/25 14:15 Aspirin 81 mg DAILY PO 05/02/25 14:30 05/02/25 15:29 81 MG Atorvastatin Calcium 40 mg DAILY PO 05/02/25 14:30 05/02/25 15:29 40 MG Ceftriaxone Sodium 50 ml @ 100 mls/hr DAILY IV 05/02/25 14:30 05/02/25 15:30 100 MLS/HR Cholecalciferol 2,000 unit DAILY PO 05/03/25 10:00 Ferrous Sulfate 325 mg DAILY PO 05/03/25 10:00 Albuterol 1.25 mg Q6HPRN PRN NEB 05/02/25 14:30 Pantoprazole Sodium 40 mg DAILY IV 05/02/25 14:30 05/02/25 15:42 40 MG Lorazepam 1 mg ONCE PRN IV 05/02/25 22:45 objective General: the patient is well developed and nourished. No acute distress. HEENT: Normocephalic, neck is supple, no carotid bruits. No mass. No erythema/swelling/rashes in the face and scalp MENTAL STATUS: Subjective SPEECH, LANGUAGE, HIGHER CORTICAL FUNCTION: no aphasia or dysathria. CRANIAL NERVES: Left monocular blurry vision, pupils are equal, round and reactive. EOMs full and conjugate. No nystagmus. Diminished pinprick and light touch only in the left face. Mandibular strength intact. Facial muscles symmetrical and strength intact. SENSATION: Light touch perceived the painful stimuli in the left neck Sensation to touch and pinprick is normal in the extremities. MOTOR: Normal tone in the upper and lower extremity. Normal muscle bulk. No fasciculations. No abnormal movements or posturing. Muscle strength of the major groups in the extremities is 5/5, left extremities: 4/5 REFLEXES: Deep tendon reflexes are symmetrical. No pathological reflexes. CEREBELLAR/COORDINATION: Finger to nose is normal bilaterally. GAIT/STATION: deferred laboratory and microbiology Laboratory Tests 05/03/25 05:50 Test 05/03/25 05:50 Range/Units Serum Glucose 117 H 74-106 mg/dL Problem List Acute stroke syndrome in the morning on 05/03/25 with unremarkable MRI Acute left facial pain, etiology unclear ? Neuralgia ? Shingles Macrocytic anemia Vitamin B12 deficiency Assessment/Plan Monitoring Supportive treatment Telemetry Intrinsic factor antibody Vitamin B12 supplementation Hold off prednisone GI prophylaxis/Protonix More recommendation per clinical course This medical document was created using an electronic medical record system with [employer] dictation system. Although this document has been carefully reviewed, there may still be some phonetic and typographical errors. These areas are purely typographical due to imperfections of the software programs, and do not reflect any compromise in the patient's medical care. Prognosis poor Plan discussed with: Patient, Other Total Time (mins): 50 CODEY RAMOS MD May 03, 2025 09:27
[2025-05-03] MEDS: LORazepam 2MG/ML-1ML VIAL IV PRN (09:32)
--- NOTE | 2025-05-03 09:48 | DVH ---
PROCEDURE: CTA HEAD AND NECK WITH AND WITHOUT CONTRAST COMPARISON: None INDICATION: stroke TECHNIQUE:: On the multirow-detector CT scanner, a volumetric scan is performed of head and neck after the administration of intravenous contrast. Multiplanar, MIP and 3D reconstructions were performed. CTDIvol measures 23 mGy. DLP measures 836 mGy*cm FINDINGS: CTA BRAIN: Cavernous ICAs: No significant atherosclerosis. A1 segments, anterior communicating artery, and A2 segments: No proximal occlusion. M1 segments and major MCA branches: No proximal occlusion. P1, P2 and proximal P3 segments of the double backer: No proximal occlusion. Intracranial vertebral arteries, cerebellar arteries and basilar artery: No proximal occlusion. CTA NECK: The common carotid arteries and ICAs are normal in course and caliber without hemodynamically significant stenosis or occlusion. The vertebral arteries are normal in course, caliber and contour, without evidence of dissection or occlusion. The lung apices are unremarkable in appearance. Hypoplastic/surgically absent thyroid gland. IMPRESSION: Motion degraded study, significantly limiting evaluation for proximal cervical ICA and carotid bulbs. No evidence of large vessel occlusion in the head and neck. If there is persistent clinical concern for acute infarct, recommend MRI for further evaluation.
[2025-05-03 09:59] LABS: INR 0.93 (0.9-1.15); Partial Thromboplastin Time 26.8 SEC (24.5-34.5); Prothrombin Time 9.9 sec (9.3-11.8)
[2025-05-03] MEDS: CHOLECALCIFEROL (VITD3) 1,000UNIT=25mCg TAB PO SCH (10:00)
[2025-05-03] MEDS: FERROUS SULFATE 325mg EC TAB PO SCH (10:00)
[2025-05-03] MEDS ORDERED: predniSONE 20 MG TAB PO SCH (10:00)
--- NOTE | 2025-05-03 10:03 | BSKYNEURO ---
[place] [facility] Note # Demographics Consult Type: Acute Stroke Level 1 (0-4.5 hrs) Patient Location: Inpatient First Name: GRICELDA Last Name: GRZEGORZ Date of : 1980 Age: 45 Gender: Female Facility: [facility] Time of Initial Page (): 05/03/2025 08:47 First Contact with Site (): 05/03/2025 08:47 # HPI History: 45 yo F obese hypothyroism asthma, anemia admitted yesterday L face numbness and tingling LKN yesterday 10 am, today 740 am L face numbness, then 830 am pain L mastoid, nurse pressed, pain to L eye, blurred, weakness LUE, LLE/ Per team asked to get on camera No blood thinners No HTN, DM, stroke Yesterday LKN 10 pm gluc 188 Now on ASA only # Scores Time of exam and NIHSS (): 05/03/2025 08:51 Level of Consciousness 1a: [0] = Alert; keenly responsive LOC Questions 1b: [0] = Answers both questions correctly LOC Commands 1c: [0] = Performs both tasks correctly Best Gaze 2: [0] = Normal Visual 3: [2] = Complete hemianopia Facial Palsy 4: [1] = Minor paralysis Motor Arm Left 5a: [3] = No effort against gravity Motor Arm Right 5b: [1] = Drift Motor Leg Left 6a: [2] = Some effort against gravity Motor Leg Right 6b: [1] = Drift Limb Ataxia 7: [0] = Absent Sensory 8: [1] = [id number]-bv-[id number] sensory loss Best Language 9: [0] = No aphasia Dysarthria 10: [0] = Normal Extinction and Inattention 11: [0] = No abnormality NIHSS Total: 11 # Exam Additional Neurologic Exam: L face, UE, LLE numbness, can't hardly feel # Data Time Head CT personally read by me (): 05/03/2025 09:[address]: - no bleed - per radiologist read Time CTA personally reviewed by me ( Time): 05/03/2025 09:59 CTA Head: - no large vessel occlusion - preliminarily reviewed by me, please refer to radiology read for official reading and per CTA Neck: - patent vessels - preliminarily reviewed by me, please refer to radiology read for official reading # Assessment Impression: - Ischemic Stroke (Acute) Likely stroke in a young patient necessitates a work up for a hypercoagulable state or a cardioembolic etiology. # Plan Thrombolytic/Intervention: NOT IV Thrombolysis or IA Intervention candidate Thrombolytic Exclusion: > 4.5 hours Intraarterial Exclusion: - no large vessel occlusion (LVO) per radiology, viewed Target Blood Pressure: - SBP < 220 - DBP < 120 Labs: - hemoglobin A1c - lipid panel - CBC - comprehensive metabolic panel - ua - urine drug screen - TSH EtOH Utox Antiphospholipid Lupus anticoagulant and anticardiolipin antibodies, anti-B2 glycoprotein (now and 12 weeks later), as well as factor V Leiden mutation, prothrombin [id number] mutation, testing for Protein C deficiency and Protein S deficiency, antithrombin III deficiency HIV, RPR CARMEN with reflex ESR INR Imaging: (urgency: STAT): - CT Angiogram Head and CT Angiogram Neck AND call back with results if abnormal Imaging: (urgency: routine): - MRI Brain without contrast Diagnostic Test: - echo with bubble study if negative would obtain DEIDRE Therapy/Evaluation: - NPO until swallow evaluation - PT/OT evaluation - speech/swallow consultation Medication: - start statin with goal of LDL < 70 - aspirin 81 mg PO daily IA Management Recommendations: if LVO consult neuro IR or if not available then transfer to IA capable facility, head of bed flat and blood pressure augmentation Other: - If patient has any neurological deterioration please call me back immediately - permissive hypertension - I have discussed my recommendations with the referring provider - will need event monitor or loop recorder as outpatient if atrial fibrillation not found as inpatient # Logistics Attestation of consult completion: The patient is located at: [facility]. Facility staff participated in the visit. I performed this telemedicine visit from my offsite office utilizing interactive 2 way audio and visual telecommunication technology at the request of the onsite inpatient provi sae. Total time spent in telemedicine encounter: I spent 20 minutes reviewing clinical data and/or imaging, obtaining history, examining the patient, communicating with the onsite care team, and in preparation of this report. # Demographics First Name: GRICELDA Last Name: GRZEGORZ Facility: [facility] Electronically signed at 05/03/2025 10:02 ([place] Time) by Slim Quezada MD Yes SLIM QUEZADA MD May 03, 2025 10:03
--- NOTE | 2025-05-03 11:23 | DVH ---
CLINICAL HISTORY: CVA TECHNIQUE: Routine multiplanar imaging of the brain was performed without gadolinium contrast. COMPARISON: CT ANGIO HEAD/NECK on DOS: 05/03/25, CT HEAD WITHOUT CONTRAST on DOS: 05/02/25, CT CT HEAD NECK WITH CONT on DOS: 01/19/23 FINDINGS: There is no abnormal restricted diffusion to suggest acute infarction. There are no significant chronic small vessel ischemic foci. There is no evidence for acute ischemic changes, mass, mass effect, or extra- axial fluid collection. There is no hydrocephalus or midline shift. The cerebral sulci and subarachnoid cisterns are not effaced. The imaged paranasal sinuses are clear. The globes are intact. The midline structures, including the corpus callosum, are unremarkable. The intracranial flow voids are maintained. IMPRESSION: No acute intracranial abnormality seen. No evidence for acute infarct. No significant white matter disease.
[2025-05-03] MEDS: CLOPIDOGREL BISULFATE 75 MG TAB PO ONE (11:33)
[2025-05-03] MEDS: CYANOCOBALAMIN (B-12) 1000 MCG/1 ML VIAL IM ONE (14:15)
--- NOTE | 2025-05-03 15:11 | DVHPNRES ---
Progress Note Date Seen: May 03, 2025 Resident Creating Document: ROBINSON GERMAN RESIDENT Objective vital signs Vital Sign Date Time Temp Pulse Resp B/P (MAP) Pulse Ox O2 Delivery O2 Flow Rate FiO2 05/03/25 11:31 97.8 05/03/25 09:00 89 20 136/77 (96) 100 05/03/25 08:40 Room Air 0.0 05/03/25 08:40 21 Total Intake and Output 05/02/25 05/02/25 05/03/25 15:00 23:00 07:00 Intake Total 50 ml 600 ml Balance 50 ml 600 ml medications Current Medications Medications Dose Ordered Sig/Dominik Route Start Time Stop Time Status Last Admin Dose Admin Sodium Chloride 1,000 ml @ 120 mls/hr Q8H20M IV 05/02/25 14:00 05/03/25 06:33 120 MLS/HR Acetaminophen/ Hydrocodone Bitart 1 tab Q4HP PRN PO 05/02/25 14:00 05/03/25 03:29 1 TAB Ondansetron HCl 4 mg Q4HP PRN IV 05/02/25 14:00 Docusate Sodium 100 mg BIDPRN PRN PO 05/02/25 14:00 Acetaminophen 650 mg Q6HP PRN PO 05/02/25 14:00 05/03/25 09:24 650 MG Morphine Sulfate 2 mg Q4HPRN PRN IV 05/02/25 14:15 05/02/25 20:23 2 MG Nitroglycerin 0.4 mg Q5MINP PRN SL 05/02/25 14:00 Morphine Sulfate 2 mg Q30M PRN IV 05/02/25 14:15 Aspirin 81 mg DAILY PO 05/02/25 14:30 05/03/25 10:00 81 MG Atorvastatin Calcium 40 mg DAILY PO 05/02/25 14:30 05/03/25 10:00 40 MG Ceftriaxone Sodium 50 ml @ 100 mls/hr DAILY IV 05/02/25 14:30 05/03/25 10:00 100 MLS/HR Cholecalciferol 2,000 unit DAILY PO 05/03/25 10:00 05/03/25 10:00 2,000 UNIT Ferrous Sulfate 325 mg DAILY PO 05/03/25 10:00 05/03/25 10:00 325 MG Albuterol 1.25 mg Q6HPRN PRN NEB 05/02/25 14:30 Pantoprazole Sodium 40 mg DAILY IV 05/02/25 14:30 05/03/25 10:00 40 MG Lorazepam 1 mg ONCE PRN IV 05/02/25 22:45 05/03/25 09:32 1 MG Clopidogrel Bisulfate 75 mg DAILY PO 05/04/25 10:00 Cyanocobalamin 1,000 mcg DAILY PO 05/04/25 10:00 laboratory and microbiology Laboratory Tests 05/03/25 05:50 Test 05/03/25 05:50 Range/Units Serum Glucose 117 H 74-106 mg/dL My Orders My Orders Orders - ROBINSON GERMAN Procedure Category Date Status Time Angio Head/Neck CT 05/03/25 Resulted 09:04 Clopidogrel Bisulfate PHA 05/04/25 In Process (Plavix) 10:00 Cyanocobalamin PHA 05/04/25 In Process (Vitamin B-12) 10:00 Blood Culture JEWEL 05/03/25 Uncollected 14:19 ROBINSON GERMAN RESIDENT May 03, 2025 15:11
--- NOTE | 2025-05-03 15:17 | DVHPNRES ---
Progress Note Date Seen: May 03, 2025 Resident Creating Document: ROBINSON GERMAN RESIDENT Medical Necessity Reason Pt with a Central, PICC or Fol: No Subjective Review of Systems This is a 45-year-old female with past medical history of hypothyroidism, iron- deficiency anemia, bronchial asthma presented to the ED with chief complaint of sudden onset of left-sided facial pain, tingling and numbness described as tightness radiating to the neck since last night at 10:30 p.m. without associated weakness, facial droop fever, vision changes, chest pain or other systemic symptoms. Initial CT head without IV contrast demonstrated normal study. Patient was seen by neurologist Dr. rodriguez and mentioned questionable stroke and recommended MRI. Today morning patient has a rapid response where she was suddenly complaining of left-sided blurred vision, pain and numbness in the left facial region, weakness, tingling and numbness in the left upper and lower extremity. [facility] was consulted and recommended CT head and CTA. CT head without contrast showed normal study and CTA was not showing any hemodynamically significant large vessel occlusion. The patient was seen and examined on the bedside. Complaint of left-sided facial pain, tingling ,numbness in the upper and lower extremity weakness in the left upper and bilateral lower extremity. Constitutional: No: Fever, Chills, Sweats, Weakness, Malaise, Other Eyes: facial pain, Vision change, No Conjunctivae inflammation, Eyelid inflammation, Other, Redness ENT: No: Ear pain, Ear discharge, Nose pain, Nose discharge, Nose congestion, Mouth pain, Mouth swelling, Throat pain, Throat swelling, Other Respiratory: Shortness of breath, improving No: Cough, Dry,Wheezing, Hemoptysis, Pleuritic Pain, Sputum, Wheezing, Other Cardiovascular: No: Chest Pain, Palpitations, Orthopnea, Paroxysmal Noc. Dyspnea, Edema, Lt Headedness, Other Gastrointestinal: No: Nausea, Vomiting, Abdominal Pain, Diarrhea, Constipation, Melena, Hematochezia, Other Musculoskeletal: No: other, neck pain, shoulder pain, arm pain, back pain, hand pain, leg pain, foot pain Neurological:; Weakness, Numbness, No Incoordination, Change in speech, Confusion, Seizures Objective vital signs Vital Sign Date Time Temp Pulse Resp B/P (MAP) Pulse Ox O2 Delivery O2 Flow Rate FiO2 05/03/25 11:31 97.8 12/17/25 09:00 89 20 136/77 (96) 100 05/03/25 08:40 Room Air 0.0 05/03/25 08:40 21 Total Intake and Output 05/02/25 05/02/25 05/03/25 15:00 23:00 07:00 Intake Total 50 ml 600 ml Balance 50 ml 600 ml medications Current Medications Medications Dose Ordered Sig/Dominik Route Start Time Stop Time Status Last Admin Dose Admin Sodium Chloride 1,000 ml @ 120 mls/hr Q8H20M IV 05/02/25 14:00 05/03/25 06:33 120 MLS/HR Acetaminophen/ Hydrocodone Bitart 1 tab Q4HP PRN PO 05/02/25 14:00 05/03/25 03:29 1 TAB Ondansetron HCl 4 mg Q4HP PRN IV 05/02/25 14:00 Docusate Sodium 100 mg BIDPRN PRN PO 05/02/25 14:00 Acetaminophen 650 mg Q6HP PRN PO 05/02/25 14:00 05/03/25 09:24 650 MG Morphine Sulfate 2 mg Q4HPRN PRN IV 05/02/25 14:15 05/02/25 20:23 2 MG Nitroglycerin 0.4 mg Q5MINP PRN SL 05/02/25 14:00 Morphine Sulfate 2 mg Q30M PRN IV 05/02/25 14:15 Aspirin 81 mg DAILY PO 05/02/25 14:30 05/03/25 10:00 81 MG Atorvastatin Calcium 40 mg DAILY PO 05/02/25 14:30 05/03/25 10:00 40 MG Ceftriaxone Sodium 50 ml @ 100 mls/hr DAILY IV 05/02/25 14:30 05/03/25 10:00 100 MLS/HR Cholecalciferol 2,000 unit DAILY PO 05/03/25 10:00 05/03/25 10:00 2,000 UNIT Ferrous Sulfate 325 mg DAILY PO 05/03/25 10:00 05/03/25 10:00 325 MG Albuterol 1.25 mg Q6HPRN PRN NEB 05/02/25 14:30 Pantoprazole Sodium 40 mg DAILY IV 05/02/25 14:30 05/03/25 10:00 40 MG Lorazepam 1 mg ONCE PRN IV 05/02/25 22:45 05/03/25 09:32 1 MG Clopidogrel Bisulfate 75 mg DAILY PO 05/04/25 10:00 Cyanocobalamin 1,000 mcg DAILY PO 05/04/25 10:00 Examination Physical examination: General Appearance: Alert, Oriented X3, Cooperative, No acute distress HEENT: Atraumatic, PERRLA, EOMI, Mucous membrane moist/pink Respiratory: Clear to auscultation, Normal air movement Cardiovascular: Regular rate, Normal S1, Normal S2, No murmurs, no chest wall tenderness Abdominal: Normal bowel sounds, Soft, No tenderness, No hepatospenomegaly, No masses Extremities: No clubbing, No cyanosis, No edema, Normal pulses, No tenderness/swelling Skin: No rashes, No breakdown, No significant lesion Neuro: No focal weakness or sensory deficit Normal speech, Strength at 5/4 X4 ext, Normal tone, Sensation intact, Cranial nerves 3-12 NL, Reflexes 2+ Psych/Mental Status: Mental status NL, Mood NL laboratory and microbiology Laboratory Tests 05/03/25 05:50 Test 05/03/25 05:50 Range/Units Serum Glucose 117 H 74-106 mg/dL Labs and/or images reviewed: Labs reviewed by me, Image(s) reviewed by me Problem List/Assessment/Plan Problem List/Assessment/Plan Assessment and plan: # Questionable acute stroke # Possible TIA # Possible conversion disorder # Tingling and numbness likely secondary to vitamin B12 deficiency # Possible facial neuralgia # Possible dental abscess with mastoiditis # Fibromyalgia/somatic pain Disorder # Macrocytosis # B12 deficiency # Questionable acute complicated UTI Plan: - CT head without IV contrast: No acute intracranial abnormality - CTA showed no evidence of large vessel occlusion in the head and neck. - MRI of head without IV contrast showed normal study - Cyanocobalamin 1000 mcg IM once followed by cyanocobalamin 1000 mcg daily - Pending blood culture - Acetaminophen 650 mg p.o. Q 8 hours PRN - IV ceftriaxone 1 g daily - Protonix 40 mg p.o. daily DVT prophylaxis not recommended Goal of care and code status discussed with the patient for more than 20 minutes full code Plan discussed with Dr. Ramirez Plan discussed with: Patient, Other (sister) My Orders My Orders Orders - ROBINSON GERMAN RESIDENT Procedure Category Date Status Time Angio Head/Neck CT 05/03/25 Resulted 09:04 Clopidogrel Bisulfate PHA 05/04/25 In Process (Plavix) 10:00 Cyanocobalamin PHA 05/04/25 In Process (Vitamin B-12) 10:00 Blood Culture JEWEL 05/03/25 Uncollected 14:19 Visit Coding STANDARD RES Billing Provider: MESFIN RAMIREZ MD Date of Service if different f: May 03, 2025 Common Visit Codes: [id number] INP/OBS CARE(HIGH) ROBINSON GERMAN RESIDENT May 03, 2025 15:17 MESFIN RAMIREZ MD May 04, 2025 14:36
[2025-05-03 15:23] LABS: Amphetamine Screen, Urine Neg (NEGATIVE); Barbiturate Scree,Urine Neg (NEGATIVE); Benzodiazephine Screen, Urine Neg (NEGATIVE); Cannabinoid Screen, Urine Neg (NEGATIVE); Cocaine Screen, Urine Neg (NEGATIVE); Opiate Scree,Urine Neg (NEGATIVE); Phencyclidine Screen, Urine Neg (NEGATIVE)
[2025-05-03] MEDS ORDERED: ACETAMINOPHEN 500 MG TAB or CAP PO PRN (16:15)
[2025-05-03] MEDS: ALBUTEROL SULF 2.5 MG/0.5ML(0.5%) NEB SOLN NEB PRN (19:48)
[2025-05-04 05:00] VITALS: BP 98/67; PULSE 60; RESP 16; TEMP 97.8; O2SAT 99
[2025-05-04] MEDS: PANTOPRAZOLE 40 MG TAB PO SCH (05:59)
[2025-05-04 06:13] LABS: Hematocrit 34.6 % (36.0-46.0); Hemoglobin 12.0 g/dL (12.2-16.2); Mean Corpuscular Hemoglobin 37.8 pg (28.0-32.0); Mean Corpuscular Volume 109.2 fL (80.0-100.0); Nucleated Red Blood Cells % 0.1 %
[2025-05-04 06:23] LABS: Anion Gap 8 (5-15); Carbon Dioxide 24 mmol/L (20-31); Potassium 3.9 mmol/L (3.5-5.1); Sodium 140 mmol/L (136-145)
[2025-05-04 06:29] LABS: BUN/Creatinine Ratio 12.0 (10.0-20.0); Glucose 88 mg/dL (74-106)
[2025-05-04 06:30] LABS: Blood Urea Nitrogen 6 mg/dL (9-23); Calcium 8.1 mg/dL (8.7-10.4); Chloride 108 mmol/L (98-107)
[2025-05-04 09:00] VITALS: BP 115/75; PULSE 60; RESP 19; TEMP 98.4; O2SAT 98
[2025-05-04 09:22] VITALS: O2SAT 99
[2025-05-04] MEDS: CYANOCOBALAMIN 500 MCG TAB PO SCH (10:13)
[2025-05-04] MEDS: CLOPIDOGREL BISULFATE 75 MG TAB PO SCH (10:15)
[2025-05-04] MEDS ORDERED: IBUP1TAB4 PO (11:57)
[2025-05-04] MEDS ORDERED: FAMO20TA10 PO (11:57)
[2025-05-04] MEDS ORDERED: ATOR40TA52 PO (11:57)
[2025-05-04] MEDS ORDERED: FER325T PO (11:57)
[2025-05-04] MEDS ORDERED: ASPI-498 PO (11:57)
[2025-05-04] MEDS ORDERED: CYAN100056 PO (11:57)
--- NOTE | 2025-05-04 11:58 | DVHDSRES ---
Discharge Summary Date of Admission Resident Creating Document: ROBINSON GERMAN RESIDENT May 02, 2025 at 13:57 Date of Discharge: May 04, 2025 Admitting Diagnosis Acute left facial pain Wounds: No open wound was present Labs/Diagnostic Data: Laboratory Results Test 05/04/25 05:24 05/03/25 05:50 05/02/25 11:10 05/02/25 10:46 White Blood Count 4.7 10^3/uL (4.4-10.8) Red Blood Count 3.16 10^6/uL (4.0-5.20) Hemoglobin 12.0 g/dL (12.2-16.2) Hematocrit 34.6 % (36.0-46.0) Mean Corpuscular Volume 109.2 fL (80.0-100.0) Mean Corpuscular Hemoglobin 37.8 pg (28.0-32.0) Mean Corpuscular Hemoglobin Concent 34.6 g/dL (32.0-36.0) Red Cell Distribution Width 13.6 % (11.8-14.3) Platelet Count 190 10^3/uL (140-450) Mean Platelet Volume 8.8 fL (6.9-10.8) Neutrophils (%) (Auto) 46.7 % (37.0-80.0) Lymphocytes (%) (Auto) 43.7 % (10.0-50.0) Monocytes (%) (Auto) 7.7 % (0.0-12.0) Eosinophils (%) (Auto) 1.3 % (0.0-7.0) Basophils (%) (Auto) 0.6 % (0.0-2.0) Neutrophils # (Auto) 2.2 10 ^3/uL (1.6-8.6) Lymphocytes # (Auto) 2.1 10 ^3/uL (0.4-5.4) Monocytes # (Auto) 0.4 10 ^3/uL (0-1.3) Eosinophils # (Auto) 0.1 10 ^3/uL (0-0.8) Basophils # (Auto) 0 10 ^3/uL (0-0.2) Nucleated Red Blood Cells 0.1 % Sodium Level 140 mmol/L (136-145) Potassium Level 3.9 mmol/L (3.5-5.1) Chloride Level 108 mmol/L (98-107) Carbon Dioxide Level 24 mmol/L (20-31) Anion Gap 8 (5-15) Blood Urea Nitrogen 6 mg/dL (9-23) Creatinine 0.50 mg/dL (0.550-1.02) Glomerular Filtration Rate Calc 119 mL/min (>90) BUN/Creatinine Ratio 12.0 (10.0-20.0) Serum Glucose 88 mg/dL (74-106) Calcium Level 8.1 mg/dL (8.7-10.4) Prothrombin Time 9.9 sec (9.3-11.8) Prothrombin Time INR 0.93 (0.9-1.15) Activated Partial Thromboplast Time 26.8 SEC (24.5-34.5) Total Bilirubin 0.4 mg/dL (0.2-1.0) Aspartate Amino Transferase (AST) 33 U/L (13-40) Alanine Aminotransferase (ALT) 35 U/L (7-40) Alkaline Phosphatase 79 U/L (46-116) Total Protein 6.3 g/dL (5.7-8.2) Albumin 3.6 g/dL (3.2-4.8) Urine Color Light-yellow (Yellow) Urine Clarity Turbid (Clear) Urine pH 5.5 (5.0-9.0) Urine Specific [place] 1.009 (1.001-1.035) Urine Protein Negative (Negative) Urine Ketones Negative (Negative) Urine Blood Negative /uL (Negative) Urine Nitrite Negative (Negative) Urine Bilirubin Negative (Negative) Urine Urobilinogen Normal mg/dL (Negative) Urine Leukocyte Esterase 1+ /uL (Negative) Urine RBC 2 /hpf (0 - 4) Urine Microscopic WBC 4 /HPF (0-5) Urine Squamous Epithelial Cells Few /hpf (<5) Urine Bacteria None seen /hpf (None Seen) Urine Glucose Normal mg/dL (Normal) Urine Test Negative (Negative) Urine Opiates Screen Neg (NEGATIVE) Urine Fentanyl Screen Neg (NEGATIVE) Urine Barbiturates Screen Neg (NEGATIVE) Urine Phencyclidine Screen Neg (NEGATIVE) Urine Amphetamines Screen Neg (NEGATIVE) Urine Benzodiazepines Screen Neg (NEGATIVE) Urine Cocaine Screen Neg (NEGATIVE) Urine Cannabinoids Screen Neg (NEGATIVE) Troponin I High Sensitivity 10 ng/L (</=34) Vitamin B12 Level 169 pg/mL (211-911) Folic Acid 9.11 ng/mL (>5.38) Free Thyroxine (T4) Calculated 1.03 ng/dL (0.89-1.76) Test 05/02/25 08:24 05/02/25 07:33 Direct Bilirubin 0.1 mg/dL (<0.3) C-Reactive Protein High Sensitivity 0.03 mg/dL (<1.0) Triglycerides Level 136 mg/dL (< 150) Cholesterol Level 165 mg/dL (< 200) LDL Cholesterol 87 mg/dL (< 100) HDL Cholesterol 70 mg/dL (40-59) Thyroid Stimulating Hormone (TSH) 4.06 uIU/mL (0.55-4.78) Beta HCG, Quantitative 0.8 mIU/mL (1.5-4.2) Plasma/Serum Blood Alcohol < 3.0 mg/dL (<10) Erythrocyte Sedimentation Rate 8 mm/hr (0-20) Hemoglobin A1c 4.7 % A1C (<5.7) B-Type Natriuretic Peptide 81.80 pg/mL (0-100) Other Laboratory Tests 05/04/25 05:24 Brief Hx & Hospital Course: Hospital course: This is a 45-year-old female with past medical history of hypothyroidism, iron-deficiency anemia, bronchial asthma presented to the ED with chief complaint of sudden onset of left-sided facial pain, tingling and numbness described as tightness radiating to the neck since last night at 10:30 p.m. without associated weakness, facial droop fever, vision changes, chest pain or other systemic symptoms. Initial CT head without IV contrast demonstrated normal study. Patient was seen by neurologist Dr. rodriguez and mentioned questionable stroke and recommended MRI. Today morning patient has a rapid response where she was suddenly complaining of left-sided blurred vision, pain and numbness in the left facial region, weakness, tingling and numbness in the left upper and lower extremity. [facility] was consulted and recommended CT head and CTA. CT head without contrast showed normal study and CTA was not showing any hemodynamically significant large vessel occlusion. MRI of head without IV contrast showed normal study. Neurology on board and mentioned acute stroke syndrome with unremarkable MRI. Echo with bubble study done but still waiting for the official report, we will discuss with the patient in [place] clinic appointment. PT was on board and mentioned the patient does not need any home health for physical therapy. Discharge was discussed with the patient and all questions were answered. Patient is being discharged to home with aspirin 81 mg daily, atorvastatin 40 mg at HS, cyanocobalamin 1000 mcg daily, acetaminophen 650 mg t.i.d. and advised to resume home medications and follow up with [place] clinic in 1 week. Physical examination: General Appearance: Alert, Oriented X3, Cooperative, No acute distress HEENT: Atraumatic, PERRLA, EOMI, Mucous membrane moist/pink Respiratory: Clear to auscultation, Normal air movement Cardiovascular: Regular rate, Normal S1, Normal S2, No murmurs, no chest wall tenderness Abdominal: Normal bowel sounds, Soft, No tenderness, No hepatospenomegaly, No masses Extremities: No clubbing, No cyanosis, No edema, Normal pulses, No tenderness/swelling Skin: No rashes, No breakdown, No significant lesion Neuro: Normal speech, Strength at 5/5 X4 ext, Normal tone, Sensation intact, Cranial nerves 3-12 NL, Reflexes 2+ Psych/Mental Status: Mental status NL, Mood NL Consults/Reason for consult Neurology was consulted Operations or Procedures CT scan of the head without contrast: FINDINGS: There is no evidence for acute intracranial hemorrhage, acute ischemic changes, mass, mass effect, or extra-axial fluid collection. There is no hydrocephalus or midline shift. There is no effacement of the cerebral sulci and basal subarachnoid cisterns. The ignacio-white matter differentiation is well maintained. The imaged paranasal sinuses are clear. IMPRESSION: NO ACUTE INTRACRANIAL ABNORMALITY SEEN. Carotid Doppler study FINDINGS: RIGHT SIDE: The peak systolic velocities are 90 cm/s in the CCA, 81 cm/s in the ICA. The ICA/CCA ratio is 0.9. The external carotid artery is patent with peak systolic velocity of 91 cm/s proximally. The subclavian artery is patent with peak systolic velocity of na cm/s. There is appropriate antegrade flow in the right vertebral artery. LEFT SIDE: The peak systolic velocities are 104 cm/s in the CCA, 118 cm/s in the ICA. The ICA/CCA ratio is 1.1. The external carotid artery is patent with peak systolic velocity of 106 cm/s proximally. The subclavian artery is patent with peak systolic velocity of na cm/s. There is appropriate antegrade flow in the left vertebral artery. IMPRESSION: No hemodynamically significant stenosis noted in the right carotid system. No hemodynamically significant stenosis noted in the left carotid system. PROCEDURE: CTA HEAD AND NECK WITH AND WITHOUT CONTRAST FINDINGS: CTA BRAIN: Cavernous ICAs: No significant atherosclerosis. A1 segments, anterior communicating artery, and A2 segments: No proximal occlusion. M1 segments and major MCA branches: No proximal occlusion. P1, P2 and proximal P3 segments of the wire rope sling maker: No proximal occlusion. Intracranial vertebral arteries, cerebellar arteries and basilar artery: No proximal occlusion. CTA NECK: The common carotid arteries and ICAs are normal in course and caliber without hemodynamically significant stenosis or occlusion. The vertebral arteries are normal in course, caliber and contour, without evidence of dissection or occlusion. The lung apices are unremarkable in appearance. Hypoplastic/surgically absent thyroid gland. IMPRESSION: Motion degraded study, significantly limiting evaluation for proximal cervical ICA and carotid bulbs. No evidence of large vessel occlusion in the head and neck. CLINICAL HISTORY: CVA FINDINGS: There is no abnormal restricted diffusion to suggest acute infarction. There are no significant chronic small vessel ischemic foci. There is no evidence for acute ischemic changes, mass, mass effect, or extra- axial fluid collection. There is no hydrocephalus or midline shift. The cerebral sulci and subarachnoid cisterns are not effaced. The imaged paranasal sinuses are clear. The globes are intact. The midline structures, including the corpus callosum, are unremarkable. The intracranial flow voids are maintained. IMPRESSION: No acute intracranial abnormality seen. No evidence for acute infarct. No significant white matter disease. Condition at Discharge: Stable Final Diagnosis/Problems List # Acute stroke syndrome with unremarkable MRI # Possible TIA # Possible conversion disorder # Tingling and numbness likely secondary to vitamin B12 deficiency # Possible facial neuralgia # Possible dental abscess with mastoiditis # Fibromyalgia/somatic pain Disorder # Macrocytosis # B12 deficiency # Questionable acute complicated UTI Discharge Disposition: Home Discharge Instruct/Medications Diet: Regular Activity: No Restrictions, As Tolerated Follow Up/Referral: Follow up with [place] clinic in 1 week. Medications: As per EMR Scheduled Acetaminophen (Tylenol Extra Strength), 650 MG PO TID Amoxicillin & Pot Clavulanate (Augmentin Tablet), 1 TAB PO BID Aspirin (Aspirin 81), 81 MG PO DAILY Atorvastatin Calcium (Atorvastatin Calcium), 1 TAB PO HS Cyanocobalamin (B-12), 1,000 MCG PO DAILY Cyclobenzaprine Hcl (Cyclobenzaprine Hcl), 1 TAB PO TID Ferrous Sulfate (Ferrous Sulfate), 1 TAB PO DAILY Hydrocodone-Acetaminophen (Hydrocodone Bitartrate/AC 5-325 mg), 1 TAB PO Q6HR Sulfamethoxazole W/Trimethopri (Bactrim Ds Tablet), 1 TAB PO BID Scheduled PRN Ibuprofen Micronized (Ibuprofen), 800 MG PO TID PRN Discharge Statement: "Patient was advised to return to the ER or call 911 if any headaches, dizziness, shortness of breath, chest pain, abdominal pain, bleeding, fevers, or worsening of medical condition. Patient was counseled about treatment plan, medications, possible side effects, patientverbalized understanding. All questions were answered to the best of my ability. This discharge took greater then 30 minutes in planning, reviewing documentation, counseling the patient, and discussing with other team members." ASSESSMENT ASSESSMENT Assessment Transient ischemic attack Visit Coding STANDARD RES Billing Provider: EMSFIN RAMIREZ MD Date of Service if different f: May 04, 2025 Common Visit Codes: 09586-KQZ/OBS DISCH DAY >30min ROBINSON GERMAN RESIDENT May 04, 2025 11:58
[2025-05-04] MEDS: ONDANSETRON HCL 4 MG/2 ML VIAL IV PRN (12:00)
[2025-05-04] MEDS ORDERED: ACET-1304 PO (12:10)
[2025-05-04 13:00] VITALS: BP 113/78; PULSE 63; RESP 17; TEMP 98.2; O2SAT 97
[2025-05-04 14:58] VITALS: BP 125/72; PULSE 63; RESP 18; TEMP 98.2; O2SAT 91
[2025-05-04 17:00] VITALS: BP 114/74; PULSE 58; RESP 17; TEMP 98.5; O2SAT 97
--- NOTE | 2025-05-05 08:53 | DVHSR ---
APPROVED REPORT EXAM: Two-dimensional and M-mode echocardiogram with Doppler and color Doppler. Blood Pressure: 100/62 mmHg INDICATION CVA/TIA: STROKE VS TIA RULE PUT STRUCTURAL HEART DISEASE RISK FACTORS Obesity: Height: 5'5, Weight: 210 DIMENSIONS LVDd 5.1 (3.8-5.7cm) LA (2D) 4.5 (1.9-4.0cm) Aortic Root 2.9 (2.0-3.7cm) LVDs 2.8 (2.5-4.0cm) LA (MM) (1.9-4.0cm) Aortic Cusp Exc 1.7 (1.5-2.0cm) EF (%) 60.0 (55-70%) Rt. Atrium 4.2 (1.9-4.0cm) Asc. Aorta cm IVSd 0.8 (0.7-1.1cm) RV (D) 5.1 (1.8-2.4cm) PWd 0.8 (0.7-1.1cm) Mitral Valve Mitral Mitral Stenosis E wave 0.89m/s MV Mean GR. mmHg A wave 0.60m/s MV Peak GR. 55mmHg E/A ratio 1.5 2D MVA cm2 DECEL Time 206ms PRESS 1/2 Time ms Aortic Valve Aortic Valve Aortic Stenosis V1 1.22m/s AO Mean GR. 4mmHg V2 1.35m/s AO Peak GR. 7mmHg LVOT Diameter 2.0 (1.8-2.4cm) Doppler SAM 2.84cm2 Pulmonic Valve V2 1.10m/s Tricuspid Valve TR Velocity 2.31m/s RVSP 21mmHg Other Information Quality : Limited Rhythm : Technically limited study due to patient position.body habitus. PT UNABLE TO MOVE LEFT SIDE Conclusion LVEF is 55-60%, Right ventricle size is moderately dilated and function normal mildly dilated right and left atrium
== END 2025-05-04 19:07 | disposition home or self-care (01) | DRG 114 ==
LOC: ER 07:08 → OVERFLOW 13:57 → TELE-CENTR 15:56
PROVIDERS: ADMIT Student in an Organized Health Care Education/Training Program; ATTEND Student in an Organized Health Care Education/Training Program
DX: K04.7 Periapical abscess without sinus (principal); H70.92 Unspecified mastoiditis, left ear; N39.0 Urinary tract infection, site not specified; D50.9 Iron deficiency anemia, unspecified; E66.9 Obesity, unspecified; E03.9 Hypothyroidism, unspecified; J45.909 Unspecified asthma, uncomplicated; D53.9 Nutritional anemia, unspecified; M79.2 Neuralgia and neuritis, unspecified; Z68.34 Body mass index [BMI] 34.0-34.9, adult; E53.8 Deficiency of other specified B group vitamins; E55.9 Vitamin D deficiency, unspecified; M79.7 Fibromyalgia; D75.89 Other specified diseases of blood and blood-forming organs; F44.9 Dissociative and conversion disorder, unspecified; Z88.8 Allergy status to other drugs, medicaments and biological substances; Z90.49 Acquired absence of other specified parts of digestive tract; Z83.3 Family history of diabetes mellitus; Z82.49 Family history of ischemic heart disease and other diseases of the circulatory system; Z84.19 Family history of other disorders of kidney and ureter
CPT/HCPCS: 36415; 70450; 70496; 70498; 70551; 71045; 80048; 80053; 80061; 80076; 80307; 80320; 81001; 81025; 82607; 82746; 83036; 83880; 84439; 84443; 84484; 84702; 85025; 85610; 85652; 85730; 86141; 87086; 93306; 93886; 94640; 96361; 96374; 96375; 97110; 97116; 97163; 97530; G0378; J2405; J2470